=== PATIENT | female | born 1935 | race Caucasian/White ===

== ENCOUNTER 2017-04-14 01:09 | Inpatient (IN) ==
--- NOTE | 2017-04-14 02:02 | Emergency Department Note ---
Nelda Alejandre Emily, am scribing for, and in the presence of, Peter Alston MD 01: 49. Gamaliel Alejandre Charles R, MD, personally performed the services described in this documentation, ascribed by Brittnee Lutz in my presence, and it is both accurate and complete . Arrival - Arrival Chief Complaint: Fall Stated Complaint: Fall ED Nursing Triage Note: Pt brouoght in by [facility] with c/o falling at the residential. Pt is c/o left hip pain. Pt was given 5mg of morphine IV per EMS. Mode of Arrival: Stretcher Limitations: Altered Mental Status (dementia) Source: Patient, RN Notes Reviewed Time Seen by Provider: 04/14/17 01:36 - History of Present Illness HPI Narrative: Pt is a 81 y/o female who was transferred by [facility] from [facility] for further evaluation of fall. Pt c/o left hip pain. Pt was given 5mg of morphine IV per EMS. Pt will not extend left leg. PMHx of dementia, HTN, thyroid disorder. Pt has low grade fever of 99.3 in ED. Onset (ago): hour(s) Consistency: constant Severity: moderate Severity scale (1-10): 6 Quality: aching Allergies/Adverse Reactions: Allergies Allergy/AdvReac Type Severity Reaction Status Date / Time aspirin Allergy Unknown/Unable Verified 04/14/17 01:30 to obtain Shrimp Allergy Unknown/Unable Verified 04/14/17 01:30 to obtain Review of System - Review of System ROS unobtainable: due to dementia Medical,Surgical,& Family Hx - Medical History Cardio: History of: Hypertension Neurology: History of: Dementia Endocrine: History of: Diabetes Mellitus (IDDM), Thyroid Disorder - Family History Family History: noncontributory - Social History Smoking Status: Unknown if ever smoked Frequency of Alcohol Use: None Type of Drug Use: None Marital Status: Single Lives With:: residential Exam Vital Signs: Vital Signs Temperature 99.2 F 04/14/17 01:15 Pulse Rate 76 04/14/17 01:15 Respiratory Rate 16 04/14/17 01:15 Blood Pressure 125/81 04/14/17 01:15 O2 Sat by Pulse Oximetry 94 L 04/14/17 01:15 - General General appearance: alert, in no apparent distress - Head Head exam: Present: atraumatic, normocephalic - Eye Eye exam: Present: nystagmus (secondary to the morphine given [employer]) - ENT ENT exam: Present: mucous membranes moist. Absent: mucous membranes dry - Chest Chest inspection: Present: symmetric chest wall rise. Absent: tenderness - Respiratory Respiratory exam: Present: normal lung sounds bilaterally. Absent: respiratory distress - Cardiovascular Cardiovascular exam: Present: regular rate, normal rhythm, normal heart sounds - Extremities Exam Extremities exam: Present: tenderness (left leg/hip pain which is slightly shortened but will not extend all the way out; neurovascularly intact), other ( left knee has scar from previous knee surgery). Absent: full ROM, pedal edema ( ) - Neurological Exam Neurological exam: Present: alert, CN II-XII intact, other (Parkinson's like tremors; will follow commands; smacks lips). Absent: oriented X3, motor sensory deficit - Skin Skin exam: Present: warm, dry, other (subcutaneous roman on face) Course Course Narrative: Knee immobilizer placed on left lower extremity - Consultations Consultation #1: Dr. Singh orthopedic was consulted he said admit to hospitalist Time: 02:56 Consultation #2: Hospitalist will admit patient Time: 02:56 Disposition Clinical Impression: Fall, Closed fracture of left distal femur, Alzheimer's dementia, Dementia, Diabetes, Debility, unspecified Case discussed with: patient Disposition: Still a Patient Condition: Stable Time of Disposition: 02:58
[2017-04-14] MEDS ORDERED: ACETAMINOPHEN 325 MG TABLET PO PRN (02:56)
[2017-04-14] MEDS ORDERED: DOCUSATE SODIUM 100 MG CAPSULE PO PRN (02:56)
[2017-04-14] MEDS ORDERED: ONDANSETRON 4 MG/2 ML VIAL IV PRN (02:56)
[2017-04-14] MEDS ORDERED: SODIUM CHLORIDE 0.9% 1,000 ML IV SCH (03:00)
[2017-04-14] MEDS ORDERED: GLUCAGON 1 MG VIAL IM PRN (03:03)
--- NOTE | 2017-04-14 03:03 | Hospitalist History & Physical ---
Assessment and Plan (1) Closed fracture of left distal femur Status: Acute Assessment and plan: Admit to 3 E. Consult orthopedics Morphine for pain Lovenox for DVT prophylaxis Review and reconcile medications once available Knee immobilizer per orthopedic surgeon's orders Current Visit: Yes Qualifiers: Encounter type: initial encounter Fracture morphology: unspecified fracture morphology Qualified Code(s): S72.402A - Unspecified fracture of lower end of left femur, initial encounter for closed fracture (2) Alzheimer's dementia Status: Acute Current Visit: Yes Qualifiers: Alzheimer's disease onset: unspecified onset Dementia behavioral disturbance: with behavioral disturbance Qualified Code(s): G30.8 - Other Alzheimer's disease; F02.81 - Dementia in other diseases classified elsewhere with behavioral disturbance (3) Debility, unspecified Status: Chronic Current Visit: Yes (4) Diabetes Status: Chronic Assessment and plan: Accu-Cheks with sliding scale insulin coverage Current Visit: Yes Qualifiers: Diabetes mellitus type: type 2 (5) Fall Status: Acute Current Visit: Yes Qualifiers: Encounter type: initial encounter Qualified Code(s): W19.XXXA - Unspecified fall, initial encounter History of Present Illness Chief complaint: fall at [place] History of present illness: Ms. Adhikari is a 81 year old female who was transferred by [facility] from [facility] for further evaluation of fall. Pt c/o left hip pain. Pt was given 5mg of morphine IV per EMS. She will not extend left leg. x-rays performed in the emergency department revealed a distal femur fracture just above the knee. Patient's being admitted to the hospitalist service with consultation for orthopedic surgery. History gathering is limited due to the patient's history of dementia. Labs are currently pending. Home medications are not available for review and reconciliation. She is a full code. PMHx of dementia, HTN, thyroid disorder. Allergies Allergy/AdvReac Type Severity Reaction Status Date / Time aspirin Allergy Unknown/Unable Verified 04/14/17 01:30 to obtain Shrimp Allergy Unknown/Unable Verified 04/14/17 01:30 to obtain Medical,Surgical,& Family Hx - Medical History Cardio: History of: Hypertension Neurology: History of: Dementia Endocrine: History of: Diabetes Mellitus (IDDM), Thyroid Disorder - Surgical History Orthopedic Surgeries: Surgical HX of;: Total Knee Replacement - Family History Family History: Reports;: Family Hypertension - Social History Smoking Status: Unknown if ever smoked Frequency of Alcohol Use: None Type of Drug Use: None Marital Status: Unknown Lives With:: USP ROS unobtainable: due to dementia Exam - Constitutional Vitals: Period Temp Pulse Resp BP Sys/Melchor Pulse Ox Last 24 Hr 99.2 F-99.2 F 76-76 16-16 125-125/81-81 94 Exam: Constitutional System: Mild distress. No tremulousness. Pleasant and cooperative. Pleasantly confused. Head: Normocephalic, atraumatic. Ears, Nose and Throat System: No pain or tenderness. No epistaxis or discharge Eyes System: Pupils equal, round, and reactive. Extraocular muscles intact. Neck: Supple, without adenopathy, No jugular venous distention. No thyromegaly, neck mass, or prior surgery apparent. Respiratory System: Chest clear to auscultation. Cardiovascular System: Heart with regular rate and rhythm. No murmur. GI System: Abdomen soft, nontender. Normo active bowel sounds present. Musculoskeletal System: limbs with 1-2+ pedal edema. Full distal pulses. Pain on palpation of the distal femur of the left leg Neurological System: No discernable sensory deficit. No aphasia Psychiatric System: Conversation is rational Results - Diagnostic Findings Procedure: X-ray: image reviewed by me, report reviewed by me
--- NOTE | 2017-04-14 03:09 | EKG Report ---
Stationary ECG Study [facility] ER Test Date: 04/14/2017 3:07:14 AM Pat Name: CRISTELA MEIER Department: Room: Gender: F Money Order Clerk: : 1935 Requested by: Peter Cooper Order Number: [id number] Reading MD: TIFFANY RODRIGUEZ Intervals [place] Rate: 81 P: 86 [place]: 220 QRS: 117 QRSD: 92 T: 28 QT: 377 QTc: 414 Interpretive Statements SINUS RHYTHM WITH PAC POSSIBLE RIGHT VENTRICULAR HYPERTROPHY MINIMAL ST DEPRESSION Electronically Signed On 04-14-17 06:21:47 CDT by TIFFANY RODRIGUEZ [email or web address]
[2017-04-14 04:02] LABS: Basophils % 0.3 % (0.0-0.8); Eosinophils # 0.1 10*3/uL (0.0-0.87); Hematocrit 26.8 VOL% (35.7-47.0); Hemoglobin 8.4 GM/DL (12.0-16.0); Immature Granulocytes % 0.6 %; Immature Granulocytes Absolute 0.05 #; Mean Corpuscular HGB Conc 31.3 GM/DL (32-36); Mean Corpuscular Hemoglobin 26 PG (27-34); Mean Corpuscular Volume 82.7 FL (87-102); Mean Platelet Volume 9.1 FL (9.6-12.0); Monocytes # 0.6 10*3/uL (0.11-0.8); Neutrophils # 7.1 10*3/uL (1.4-7.4); Neutrophils % 80.1 % (38.7-73.9); Platelet Count 341 T/CUMM (130-400); Red Blood Count 3.24 MC/CUMM (3.8-5.5); Red Cell Distribution Width 16.1 % (9.3-17.3); White Blood Count 8.9 T/CUMM (4-12)
[2017-04-14 04:14] LABS: PT Patient Result 10.5 SECS
[2017-04-14 04:25] LABS: Albumin 3.9 G/DL (3.4-5.0); Bilirubin,Total 0.4 MG/DL (0.2-1.0); Calcium 9.4 MG/DL (8.5-10.1); Osmolality,Calculated 289.4 MOS/KG (273-304); Total Protein 7.9 G/DL (6.4-8.3)
[2017-04-14 05:16] LABS: Apearance,Urine Slightly Hazy (Clear); Bacteria,Urine Moderate /HPF (Few); Bilirubin,Urine Negative (Negative); Blood, Urine Negative (Negative); Glucose,Urine (UA) Negative (Negative); Hyaline Casts,Urine 4 /LPF (0-3); Ketones,Urine Negative (Negative); Mucus,Urine Occasional /LPF (Occasional); Nitrite,Urine Negative (Negative); Protein,Urine Negative; RBC,Urine 1 /HPF (0-4); Squamous Epithelial Cell,Urine Occasional /HPF (0-10); Urine Color Yellow (Yellow); Urine Specific Gravity 1.012 (1.001-1.035); Urine Urobilinogen < 2.0 EU/DL (0.2-1.0); WBC,Urine 18 /HPF (0-6)
[2017-04-14] MEDS ORDERED: ceFAZolin 2,000 MG in PREMIX 1 EACH IV ONE (06:56)
--- NOTE | 2017-04-14 07:12 | XRay Report ---
XR chest 1V portable Indication: Shortness of breath Comparison: None available Findings: The heart and mediastinum are normal in size and configuration. The pulmonary vascularity is normal in caliber. No lung infiltrates, effusions, pneumothorax or other abnormality is demonstrated. Impression: No acute cardiopulmonary disease. PROCEDURE INTERPRETED AT [facility] DEPARTMENT OF RADIOLOGY Final Report Signed by: Dr. Tomas Lindo
--- NOTE | 2017-04-14 07:28 | XRay Report ---
XR knee 2V LT, XR femur LT Indication: Pain Comparison: None available Findings: There is oblique fracture of the distal femur at the diaphyseal metaphyseal junction. There is slight lateral displacement of the distal femur. Arthroplasty appears within normal limits. Impression: Distal femur fracture as described above. PROCEDURE INTERPRETED AT [facility] DEPARTMENT OF RADIOLOGY Final Report Signed by: Dr. Tomas Lindo
--- NOTE | 2017-04-14 07:30 | XRay Report ---
XR pelvis AP 1 or 2 Views, XR hip 2V LT Indication: Pain, falling injury Comparison: None available Findings: No evidence of fracture seen. The alignment of the joints appears normal. Mild hip degenerative change is present. No soft tissue abnormality is seen. Impression: No evidence of acute injury demonstrated PROCEDURE INTERPRETED AT [facility] DEPARTMENT OF RADIOLOGY Final Report Signed by: Dr. Tomas Lindo
--- NOTE | 2017-04-14 07:31 | Orthopedic Consult Note ---
History of Present Illness History of present illness: Ms. Adhikari is a 81 year old female who fell sustaining a left spiral distal femur periprosthetic fracture. The patient is severely demented. She states that she fell when the mules got out. Patient has no complaints. She is undergone a left total knee [place] [address] José Antonio Feliz with a liner exchange. Home Medications Medication Instructions Recorded Confirmed Type Cholecalciferol [Vitamin D3] 2,000 unit PO DAILY 04/14/17 04/14/17 History Cyanocobalamin (Vitamin B-12) 1,000 mcg PO DAILY 04/14/17 04/14/17 History [Vitamin B-12] DULoxetine [Cymbalta] 90 mg PO DAILY@1700 04/14/17 04/14/17 History Docusate Sodium [Colace] 100 mg PO DAILY 04/14/17 04/14/17 History Donepezil [Aricept] 10 mg PO DAILY 04/14/17 04/14/17 History Furosemide [Furosemide] 20 mg PO BID 04/14/17 04/14/17 History Glimepiride [Glimepiride] 4 mg PO DAILY 04/14/17 04/14/17 History Levothyroxine Sodium 75 mcg PO DAILY 04/14/17 04/14/17 History Losartan/Hctz 50-12.5 [Hyzaar 2 tablet PO DAILY 04/14/17 04/14/17 History 50-12.5] Multivitamin (Centrum) [Centrum 1 tablet PO DAILY 04/14/17 04/14/17 History Tab] Nitrofurantoin Macro/[place] 100 mg PO DAILY 04/14/17 04/14/17 History [Macrobid] Potassium Chloride Cap/Tab [K Dur] 10 meq PO DAILY 04/14/17 04/14/17 History Pravastatin Sodium 40 mg PO BEDTIME 04/14/17 04/14/17 History Sertraline HCl 50 mg PO SUMOTUWETHFR 04/14/17 04/14/17 History Sitagliptin Phosphate [Januvia] 50 mg PO DAILY 04/14/17 04/14/17 History Temazepam [Restoril] 7.5 mg PO MOFR 04/14/17 04/14/17 History Trazodone HCl 100 mg PO BEDTIME 04/14/17 04/14/17 History clonazePAM [Clonazepam] 0.25 mg PO BID 04/14/17 04/14/17 History Allergies Allergy/AdvReac Type Severity Reaction Status Date / Time aspirin Allergy Unknown/Unable Verified 04/14/17 01:30 to obtain Shrimp Allergy Unknown/Unable Verified 04/14/17 01:30 to obtain 12 point system: reviewed and no additional remarkable complaints except as stated Medical,Surgical,& Family Hx - Medical History Cardio: History of: Hypertension Neurology: History of: Dementia Endocrine: History of: Diabetes Mellitus (IDDM), Thyroid Disorder - Surgical History Orthopedic Surgeries: Surgical HX of;: Total Knee Replacement - Family History Family History: Reports;: Family Hypertension - Social History Smoking Status: Unknown if ever smoked Frequency of Alcohol Use: None Type of Drug Use: None Exam - Constitutional Vitals: Period Temp Pulse Resp BP Sys/Melchor Pulse Ox Last 24 Hr 97.0 F-99.2 F 76-91 16-20 98-125/47-81 94-100 Alert, confused. Does not consistently follow commands. Left lower extremity shows a deformity at her mid to distal thigh. Skin is intact. Well-healed anterior knee incision. She can flex her toes but is unable to extend her toes or ankle to stimulation. X-rays femur demonstrate a well fixed cemented posterior stabilized total knee replacement with the distal femoral spiral fracture. Impression left periprosthetic femur fracture Plan: I have advised open reduction fixation of this fracture for palliative care. Risks include but not limited to infection, bleeding, anesthesia, thromboembolic event, etc. I have discussed these risks with her family. All questions were answered. Results - Labs CBC & BMP: 04/14/17 03:01 04/14/17 03:01 Assessment and Plan (1) Periprosthetic fracture around internal prosthetic joint Status: Acute Current Visit: Yes Qualifiers: Internal joint prosthesis site: knee Encounter type: initial encounter Laterality: left Qualified Code(s): M97.12XA - Periprosthetic fracture around internal prosthetic left knee joint, initial encounter
[2017-04-14] MEDS: PANTOPRAZOLE 40 MG TABLET PO SCH (08:14)
[2017-04-14] MEDS: INSULIN LISPRO 100 UNIT/ML SUBCUT SCH ×4 (08:14→20:49)
[2017-04-14] MEDS ORDERED: ENOXAPARIN 40 MG/0.4 ML SYRINGE SUBCUT SCH (09:00)
--- NOTE | 2017-04-14 12:40 | Operative Note ---
Procedure: DIAGNOSIS: Left periprosthetic femur fracture around a prior total knee arthroplasty PROCEDURE: Open reduction fixation left periprosthetic femur fracture SURGEON: Samantha ANESTHESIA: Spinal PROCEDURE and FINDINGS: After adequate anesthesia was induced, her left lower extremity is prepped and draped in usual sterile fashion. A distal incision was made laterally exposing her distal femur. A second incision was made proximally. Skin, subcutaneous tissue and iliotibial band was incised. Vastus lateralis was elevated from the intramuscular septum in both incisions. The lateral aspect of the femur was identified. A Synthes distal femoral locking plate was slid submuscularly. The femur was fixed distally with locking screws and proximally with cortical screws. A lag screw was placed from anterior to posterior and another lag screw was placed from lateral to medial through the plate. Bone quality was poor. Image intensification was used multiple planes. The wound was irrigated and closed deep with 0 Vicryl [id number] suture. Subcutaneous tissue was closed with 2-0 Vicryl deep and 3-0 Vicryl superficially. Oldhams were used to close skin. Image intensification was used in multiple planes to intake clinician adequacy of the reduction. Bacitracin and a sterile dressing was applied. She is placed back in her knee immobilizer. Surgeon / Physician: Alejandro Singh Jr. Results - Labs CBC & BMP: 04/14/17 03:01 04/14/17 03:01 Discharge Plan - Discharge Medications No Action DULoxetine [Cymbalta] 90 mg PO DAILY@1700 clonazePAM [Clonazepam] 0.25 mg PO BID Temazepam [Restoril] 7.5 mg PO MOFR Nitrofurantoin Macro/[place] [Macrobid] 100 mg PO DAILY Multivitamin (Centrum) [Centrum Tab] 1 tablet PO DAILY Sertraline HCl 50 mg PO SUMOTUWETHFR Cyanocobalamin (Vitamin B-12) [Vitamin B-12] 1,000 mcg PO DAILY Potassium Chloride Cap/Tab [K Dur] 10 meq PO DAILY Donepezil [Aricept] 10 mg PO DAILY Furosemide [Furosemide] 20 mg PO BID Sitagliptin Phosphate [Januvia] 50 mg PO DAILY Losartan/Hctz 50-12.5 [Hyzaar 50-12.5] 2 tablet PO DAILY Levothyroxine Sodium 75 mcg PO DAILY Glimepiride [Glimepiride] 4 mg PO DAILY Trazodone HCl 100 mg PO BEDTIME Pravastatin Sodium 40 mg PO BEDTIME Cholecalciferol [Vitamin D3] 2,000 unit PO DAILY Docusate Sodium [Colace] 100 mg PO DAILY - Follow Up or Referral - Forms/Instructions
[2017-04-14] MEDS ORDERED: TRANEXAMIC ACID 1,000 MG/10 ML VIAL IV ONE (13:02)
[2017-04-14] MEDS ORDERED: oxyCODONE IR 5 MG TABLET PO PRN ×2 (14:25)
[2017-04-14] MEDS ORDERED: MAGNESIUM HYDROXIDE SUSP 30 ML UDCUP PO PRN (14:25)
[2017-04-14] MEDS ORDERED: KETAMINE 500 MG/10 ML VIAL ONE (14:45)
[2017-04-14] MEDS ORDERED: MIDAZOLAM 2 MG/2 ML VIAL ONE (14:45)
[2017-04-14] MEDS ORDERED: LACTATED RINGERS 1,000 ML IV ONE (14:45)
[2017-04-14] MEDS ORDERED: SODIUM CHLORIDE 0.9% 250 ML IV PRN (15:09)
[2017-04-14] MEDS ORDERED: FUROSEMIDE 40 MG/4 ML VIAL IV PRN (15:09)
[2017-04-14] MEDS: SERTRALINE 50 MG TABLET PO SCH (15:21)
[2017-04-14] MEDS: LACTATED RINGERS 1,000 ML IV SCH (15:25)
[2017-04-14] MEDS: KETOROLAC 15 MG/1 ML VIAL IV SCH ×2 (15:25→20:50)
--- NOTE | 2017-04-14 15:29 | Anesthesia Post-Op ---
Anesthesia Post OP - Post Ansesthetic Evaluation Patient seen in post op: Yes Resp: within normal limits CV: within normal limits Mental: within normal limits Temp: within normal limits Ruxr-[id number]-Nslumuwzd: within normal limits Nausea and Vomiting: within normal limits Pain: within normal limits
--- NOTE | 2017-04-14 15:51 | XRay Report ---
Exam: XR femur LT Date: 04/14/2017 12:00 AM Comparison: 04/14/2017 Indication: ORIF left femur Technique:[Fluoroscopy time 31 seconds documented. AP and lateral films were obtained of the left femur.] Findings: Status post left total knee replacement. Insertion of medial compression plate with multiple screws in the mid to distal left femur. The acute displaced fracture of the distal left femur appears to be in satisfactory position alignment for healing. Impression: Satisfactory internal fixation of the displaced fracture of the distal left femur. Status post left total knee replacement. PROCEDURE INTERPRETED AT [facility] DEPARTMENT OF RADIOLOGY Final Report Signed by: Dr. Brunilda Mcintyre
[2017-04-14 16:27] LABS: Basophils % 0.2 % (0.0-0.8); Eosinophils # 0.1 10*3/uL (0.0-0.87); Eosinophils % 0.5 % (0.00-10.9); Hematocrit 20.9 VOL% (35.7-47.0); Hemoglobin 6.5 GM/DL (12.0-16.0); Immature Granulocytes % 0.4 %; Immature Granulocytes Absolute 0.04 #; Lymphocytes # 0.7 10*3/uL (1.4-4.0); Lymphocytes % 7.1 % (21.3-54.2); Mean Corpuscular HGB Conc 31.1 GM/DL (32-36); Mean Corpuscular Hemoglobin 26 PG (27-34); Mean Corpuscular Volume 83.6 FL (87-102); Mean Platelet Volume 9.2 FL (9.6-12.0); Monocytes # 0.8 10*3/uL (0.11-0.8); Monocytes % 7.9 % (1.7-12.7); Neutrophils # 8.1 10*3/uL (1.4-7.4); Neutrophils % 83.9 % (38.7-73.9); Platelet Count 274 T/CUMM (130-400); Red Cell Distribution Width 15.9 % (9.3-17.3); White Blood Count 9.7 T/CUMM (4-12)
[2017-04-14] MEDS: DULoxetine 30 MG CAPSULE PO SCH (16:36)
[2017-04-14 16:49] LABS: Calcium 8.5 MG/DL (8.5-10.1); Potassium 3.7 MMOL/L (3.5-5.1)
[2017-04-14 18:06] LABS: Lymphocytes 11 % (20-55); Platelet Estimate Adequate; Polychromasia Slight; Segmented Neutrophils 89 % (50-85); Total Cells Counted 100
[2017-04-14] MEDS: ACETAMINOPHEN 500 MG TABLET PO SCH (18:11)
[2017-04-14] MEDS: FUROSEMIDE 20 MG TABLET PO SCH (20:50)
[2017-04-14] MEDS: PRAVASTATIN 40 MG TABLET PO SCH (20:50)
[2017-04-14] MEDS: traZODone 50 MG TABLET PO SCH (20:50)
[2017-04-15] MEDS: ACETAMINOPHEN 500 MG TABLET PO SCH ×3 (01:18→11:35)
[2017-04-15] MEDS: ceFAZolin 2,000 MG in PREMIX 1 EACH IV SCH ×2 (02:22→10:07)
[2017-04-15] MEDS: KETOROLAC 15 MG/1 ML VIAL IV SCH ×2 (02:34→08:05)
[2017-04-15 03:28] LABS: Basophils % 0.2 % (0.0-0.8); Eosinophils % 0.5 % (0.00-10.9); Hematocrit 23.6 VOL% (35.7-47.0); Hemoglobin 7.6 GM/DL (12.0-16.0); Immature Granulocytes % 0.5 %; Immature Granulocytes Absolute 0.03 #; Lymphocytes # 0.7 10*3/uL (1.4-4.0); Lymphocytes % 11.7 % (21.3-54.2); Mean Corpuscular HGB Conc 32.2 GM/DL (32-36); Mean Corpuscular Hemoglobin 27 PG (27-34); Mean Corpuscular Volume 83.7 FL (87-102); Mean Platelet Volume 9.6 FL (9.6-12.0); Monocytes # 0.8 10*3/uL (0.11-0.8); Monocytes % 12.4 % (1.7-12.7); Neutrophils # 4.6 10*3/uL (1.4-7.4); Neutrophils % 74.7 % (38.7-73.9); Platelet Count 229 T/CUMM (130-400); Red Blood Count 2.82 MC/CUMM (3.8-5.5); Red Cell Distribution Width 15.3 % (9.3-17.3); White Blood Count 6.1 T/CUMM (4-12)
[2017-04-15 03:43] LABS: Calcium 7.9 MG/DL (8.5-10.1); Magnesium 2.3 MG/DL (1.8-2.4); Potassium 4.1 MMOL/L (3.5-5.1)
[2017-04-15] MEDS: LACTATED RINGERS 1,000 ML IV SCH ×3 (07:37→21:21)
[2017-04-15] MEDS: INSULIN LISPRO 100 UNIT/ML SUBCUT SCH ×4 (07:38→21:05)
[2017-04-15] MEDS: FUROSEMIDE 20 MG TABLET PO SCH ×2 (08:01→21:08)
[2017-04-15] MEDS: clonazePAM 0.5 MG TABLET PO SCH ×2 (08:01→21:07)
[2017-04-15] MEDS: LOSARTAN/HCTZ 50-12.5 MG TABLET PO SCH (08:01)
[2017-04-15] MEDS: FONDAPARINUX 2.5 MG/0.5 ML SYRINGE SUBCUT SCH (08:05)
[2017-04-15] MEDS: GLIMEPIRIDE 4 MG TABLET PO SCH (08:06)
[2017-04-15] MEDS: LEVOTHYROXINE 75 MCG TABLET PO SCH (08:06)
[2017-04-15] MEDS: DONEPEZIL 10 MG TABLET PO SCH (08:06)
[2017-04-15] MEDS: POTASSIUM CHLORIDE 10 MEQ TABLET PO SCH (08:07)
[2017-04-15] MEDS: CHOLECALCIFEROL 1,000 UNIT TABLET PO SCH (08:07)
[2017-04-15] MEDS: sitaGLIPtin 25 MG TABLET PO SCH (08:07)
[2017-04-15] MEDS: MULTIVITAMIN (CENTRUM) TABLET PO SCH (08:07)
[2017-04-15] MEDS: CYANOCOBALAMIN 500 MCG TABLET PO SCH (08:07)
--- NOTE | 2017-04-15 08:07 | Orthopedic Progress Note ---
Orthopedics - Subjective Interval history: She is one day postop orif of periprosthetic femur fx left, adjacent to total knee. Alert, oriented. Dressing clean and dry. neurovascular seems ok. hct at 23.6, and was 20.9 yesterday but bears watching. Plan: no change in ortho orders Exam - Constitutional Vitals: Period Temp Pulse Resp BP Sys/Melchor Pulse Ox Last 24 Hr 97.2 F-100.0 F 65-101 16-22 72-131/29-77 88-100 Results - Labs CBC & BMP: 04/15/17 02:51 04/15/17 02:51
[2017-04-15] MEDS: DOCUSATE SODIUM 100 MG CAPSULE PO SCH (08:27)
[2017-04-15] MEDS: NITROFURANTOIN MACRO/MONO 100 MG CAPSULE PO SCH (08:27)
[2017-04-15] MEDS: PANTOPRAZOLE 40 MG TABLET PO SCH (08:27)
--- NOTE | 2017-04-15 10:49 | Hospitalist Progress Note ---
Assessment and Plan (1) UTI (urinary tract infection) Status: Acute Assessment and plan: The patient has gram-negative naga urinary tract infection. It was present on admission. We are treating this with oral Levaquin. We will likely have identity and sensitivities by tomorrow. Current Visit: Yes Qualifiers: Urinary tract infection type: acute cystitis Hematuria presence: without hematuria Qualified Code(s): N30.00 - Acute cystitis without hematuria Hospitalist: Subjective Interval history: The patient is postoperative day #1 from distal femur fracture. The patient is on standard postoperative recovery. Urinalysis showed some pyuria and urine culture reveals gram-negative rods. Levaquin is now started. Exam - Constitutional Vitals: Period Temp Pulse Resp BP Sys/Melchor Pulse Ox Last 24 Hr 97.2 F-100.0 F 65-101 16-22 72-131/29-77 88-100 General appearance: no acute distress - ENT ENT exam: Present: normal exam - Respiratory Respiratory exam: Present: clear to auscultation bilaterally - Cardiovascular Cardiovascular exam: Present: regular rate and rhythm - GI/Abdominal GI/Abdominal exam: Present: normal bowel sounds Results - Labs CBC & BMP: 04/15/17 02:51 04/15/17 02:51 Lab Results: I have reviewed the past 24 hour labs
[2017-04-15] MEDS ORDERED: LEVOFLOXACIN 500 MG TABLET PO ONE (11:00)
[2017-04-15 15:47] LABS: Hematocrit 22.9 VOL% (35.7-47.0); Hemoglobin 7.3 GM/DL (12.0-16.0)
[2017-04-15] MEDS ORDERED: SODIUM CHLORIDE 0.9% 250 ML IV PRN (16:02)
[2017-04-15] MEDS: DULoxetine 30 MG CAPSULE PO SCH (16:21)
[2017-04-15 20:21] LABS: Basophils % 0.3 % (0.0-0.8); Eosinophils # 0.1 10*3/uL (0.0-0.87); Eosinophils % 1.7 % (0.00-10.9); Hematocrit 27.2 VOL% (35.7-47.0); Hemoglobin 8.9 GM/DL (12.0-16.0); Immature Granulocytes % 0.4 %; Immature Granulocytes Absolute 0.03 #; Lymphocytes # 0.8 10*3/uL (1.4-4.0); Lymphocytes % 11.4 % (21.3-54.2); Mean Corpuscular HGB Conc 32.7 GM/DL (32-36); Mean Corpuscular Hemoglobin 27 PG (27-34); Mean Corpuscular Volume 83.7 FL (87-102); Mean Platelet Volume 9.1 FL (9.6-12.0); Monocytes # 0.9 10*3/uL (0.11-0.8); Monocytes % 12.6 % (1.7-12.7); Neutrophils # 5.3 10*3/uL (1.4-7.4); Neutrophils % 73.6 % (38.7-73.9); Platelet Count 210 T/CUMM (130-400); Red Blood Count 3.25 MC/CUMM (3.8-5.5); Red Cell Distribution Width 15.8 % (9.3-17.3); White Blood Count 7.2 T/CUMM (4-12)
[2017-04-15] MEDS: PRAVASTATIN 40 MG TABLET PO SCH (21:08)
[2017-04-15] MEDS: traZODone 50 MG TABLET PO SCH (21:08)
[2017-04-16 03:18] LABS: Basophils % 0.1 % (0.0-0.8); Eosinophils # 0.1 10*3/uL (0.0-0.87); Eosinophils % 1.3 % (0.00-10.9); Hematocrit 26.7 VOL% (35.7-47.0); Hemoglobin 8.7 GM/DL (12.0-16.0); Immature Granulocytes % 0.5 %; Immature Granulocytes Absolute 0.04 #; Lymphocytes # 0.9 10*3/uL (1.4-4.0); Lymphocytes % 11.3 % (21.3-54.2); Mean Corpuscular HGB Conc 32.6 GM/DL (32-36); Mean Corpuscular Hemoglobin 27 PG (27-34); Mean Corpuscular Volume 83.2 FL (87-102); Mean Platelet Volume 9.4 FL (9.6-12.0); Monocytes % 12.7 % (1.7-12.7); Neutrophils # 5.7 10*3/uL (1.4-7.4); Neutrophils % 74.1 % (38.7-73.9); Platelet Count 224 T/CUMM (130-400); Red Blood Count 3.21 MC/CUMM (3.8-5.5); Red Cell Distribution Width 16.1 % (9.3-17.3); White Blood Count 7.7 T/CUMM (4-12)
[2017-04-16 04:50] LABS: Band Neutrophils 1 % (0-10); Lymphocytes 12 % (20-55); Segmented Neutrophils 78 % (50-85)
[2017-04-16 04:52] LABS: Platelet Estimate Normal
[2017-04-16 04:53] LABS: Total Cells Counted 100
[2017-04-16] MEDS: LACTATED RINGERS 1,000 ML IV SCH ×3 (06:05→16:30)
[2017-04-16] MEDS: INSULIN LISPRO 100 UNIT/ML SUBCUT SCH ×4 (07:52→21:12)
[2017-04-16] MEDS: CHOLECALCIFEROL 1,000 UNIT TABLET PO SCH (08:17)
[2017-04-16] MEDS: PANTOPRAZOLE 40 MG TABLET PO SCH (08:17)
[2017-04-16] MEDS: MULTIVITAMIN (CENTRUM) TABLET PO SCH (08:17)
[2017-04-16] MEDS: CYANOCOBALAMIN 500 MCG TABLET PO SCH (08:17)
[2017-04-16] MEDS: POTASSIUM CHLORIDE 10 MEQ TABLET PO SCH (08:19)
[2017-04-16] MEDS: FUROSEMIDE 20 MG TABLET PO SCH ×2 (08:20→22:20)
[2017-04-16] MEDS: NITROFURANTOIN MACRO/MONO 100 MG CAPSULE PO SCH (08:20)
[2017-04-16] MEDS: clonazePAM 0.5 MG TABLET PO SCH ×2 (08:20→21:47)
[2017-04-16] MEDS: DONEPEZIL 10 MG TABLET PO SCH (08:20)
[2017-04-16] MEDS: LOSARTAN/HCTZ 50-12.5 MG TABLET PO SCH (08:20)
[2017-04-16] MEDS: LEVOTHYROXINE 75 MCG TABLET PO SCH (08:20)
[2017-04-16] MEDS: DOCUSATE SODIUM 100 MG CAPSULE PO SCH (08:20)
[2017-04-16] MEDS: GLIMEPIRIDE 4 MG TABLET PO SCH (08:36)
[2017-04-16] MEDS: sitaGLIPtin 25 MG TABLET PO SCH (08:36)
[2017-04-16] MEDS: FONDAPARINUX 2.5 MG/0.5 ML SYRINGE SUBCUT SCH (08:36)
--- NOTE | 2017-04-16 10:22 | Orthopedic Progress Note ---
Orthopedics - Subjective Interval history: This lady is now 2 days postoperative surgical repair for a distal femur periprosthetic fracture adjacent to the toe. She was given 1 transfusion yesterday but her blood count now is at 26.7. Will recheck later today. She is alert and oriented and her pain is under control Exam - Constitutional Vitals: Period Temp Pulse Resp BP Sys/Melchor Pulse Ox Last 24 Hr 97.3 F-98.8 F 62-94 16-18 95-144/42-74 93-100 Results - Labs CBC & BMP: 04/16/17 02:29 04/15/17 02:51
[2017-04-16] MEDS: DEXTROSE 50% 25 GM/50 ML SYRINGE IV PRN ×3 (10:58→22:24)
--- NOTE | 2017-04-16 12:02 | Hospitalist Progress Note ---
Assessment and Plan (1) UTI (urinary tract infection) Status: Acute Assessment and plan: The patient has E. coli urinary tract infection. It was present on admission. Sensitivities show resistance in the ESBL fashion. Levaquin is discontinued now and meropenem has been started. If oral antibiotic were desired she could be discharged on . Current Visit: Yes Qualifiers: Urinary tract infection type: acute cystitis Hematuria presence: without hematuria Qualified Code(s): N30.00 - Acute cystitis without hematuria Hospitalist: Subjective Interval history: The patient was admitted to the hospital after a fall. She sustained a left distal femur fracture which was associated with previous total knee arthroplasty. The patient is now on her second postoperative day. The patient had hypoglycemia last night. Her aunt oral antidiabetic medications are now discontinued. The patient had transfusion yesterday will recheck blood counts again tomorrow. Exam - Constitutional Vitals: Period Temp Pulse Resp BP Sys/Melchor Pulse Ox Last 24 Hr 97.3 F-98.8 F 63-94 16-18 95-144/42-74 93-100 General appearance: no acute distress - Respiratory Respiratory exam: Present: clear to auscultation bilaterally - Cardiovascular Cardiovascular exam: Present: regular rate and rhythm - GI/Abdominal GI/Abdominal exam: Present: normal bowel sounds Results - Labs CBC & BMP: 04/16/17 02:29 04/15/17 02:51 Lab Results: I have reviewed the past 24 hour labs
[2017-04-16] MEDS: MEROPENEM 500 MG in SODIUM CHLORIDE 0.9% 100 ML IV SCH (13:06)
[2017-04-16] MEDS: SERTRALINE 50 MG TABLET PO SCH (14:36)
[2017-04-16 16:19] LABS: Hematocrit 25.2 VOL% (35.7-47.0); Hemoglobin 8.1 GM/DL (12.0-16.0)
[2017-04-16] MEDS: DEXTROSE 10% 1,000 ML IV SCH (16:42)
[2017-04-16] MEDS: DULoxetine 30 MG CAPSULE PO SCH (16:42)
[2017-04-16] MEDS: traZODone 50 MG TABLET PO SCH (21:47)
[2017-04-16] MEDS: PRAVASTATIN 40 MG TABLET PO SCH (21:47)
[2017-04-17] MEDS: MEROPENEM 500 MG in SODIUM CHLORIDE 0.9% 100 ML IV SCH ×2 (00:32→11:53)
[2017-04-17] MEDS: DEXTROSE 10% 1,000 ML IV SCH ×2 (03:27→13:21)
[2017-04-17 04:50] LABS: Basophils % 0.1 % (0.0-0.8); Eosinophils # 0.1 10*3/uL (0.0-0.87); Eosinophils % 0.7 % (0.00-10.9); Hematocrit 25.8 VOL% (35.7-47.0); Hemoglobin 8.4 GM/DL (12.0-16.0); Immature Granulocytes % 0.8 %; Immature Granulocytes Absolute 0.06 #; Lymphocytes # 0.5 10*3/uL (1.4-4.0); Lymphocytes % 6.8 % (21.3-54.2); Mean Corpuscular HGB Conc 32.6 GM/DL (32-36); Mean Corpuscular Hemoglobin 27 PG (27-34); Mean Corpuscular Volume 83.8 FL (87-102); Mean Platelet Volume 9.4 FL (9.6-12.0); Monocytes # 0.9 10*3/uL (0.11-0.8); Monocytes % 11.5 % (1.7-12.7); Neutrophils % 80.1 % (38.7-73.9); Platelet Count 216 T/CUMM (130-400); Red Blood Count 3.08 MC/CUMM (3.8-5.5); Red Cell Distribution Width 16.4 % (9.3-17.3); White Blood Count 7.5 T/CUMM (4-12)
[2017-04-17 05:24] LABS: Calcium 8.2 MG/DL (8.5-10.1); Magnesium 2.3 MG/DL (1.8-2.4); Osmolality,Calculated 286.1 MOS/KG (273-304); Potassium 3.6 MMOL/L (3.5-5.1)
[2017-04-17] MEDS: DEXTROSE 50% 25 GM/50 ML SYRINGE IV PRN (05:34)
[2017-04-17] MEDS: INSULIN LISPRO 100 UNIT/ML SUBCUT SCH ×4 (07:41→20:00)
--- NOTE | 2017-04-17 08:48 | Orthopedic Progress Note ---
Assessment and Plan (1) Periprosthetic fracture around internal prosthetic joint Status: Acute Current Visit: Yes Qualifiers: Internal joint prosthesis site: knee Encounter type: initial encounter Laterality: left Qualified Code(s): M97.12XA - Periprosthetic fracture around internal prosthetic left knee joint, initial encounter Orthopedics - Subjective Interval history: Ms. Adhikari is comfortable. She remains confused at baseline. Her dressing is clean, dry and intact. Left lower extremity is neurovascularly unchanged from admission. She can flex her toes and weakly her ankles. She is unable to extend her toes or ankle. She follows commands poorly. Hemoglobin 8.4 Plan: May be discharged back to the [facility] at any point from my standpoint. Remove knee immobilizer daily for wound check, skin check and hygiene. Daily dry dressing changes. Discontinue jordon and Steri-Strip wound on April 26, 2017. Follow-up appointment 4 weeks. Strict nonweightbearing left lower extremity. Exam - Constitutional Vitals: Period Temp Pulse Resp BP Sys/Melchor Pulse Ox Last 24 Hr 97.7 F-98.5 F 64-90 16-18 106-152/49-73 95-97 Results - Labs CBC & BMP: 04/17/17 04:24 04/17/17 04:24
[2017-04-17] MEDS ORDERED: LEVOFLOXACIN 250 MG TABLET PO SCH (09:00)
[2017-04-17] MEDS: clonazePAM 0.5 MG TABLET PO SCH (09:25)
[2017-04-17] MEDS: FONDAPARINUX 2.5 MG/0.5 ML SYRINGE SUBCUT SCH (09:26)
[2017-04-17] MEDS: LEVOTHYROXINE 75 MCG TABLET PO SCH (09:26)
[2017-04-17] MEDS: CHOLECALCIFEROL 1,000 UNIT TABLET PO SCH (09:26)
[2017-04-17] MEDS: CYANOCOBALAMIN 500 MCG TABLET PO SCH (09:26)
[2017-04-17] MEDS: NITROFURANTOIN MACRO/MONO 100 MG CAPSULE PO SCH (09:26)
[2017-04-17] MEDS: DONEPEZIL 10 MG TABLET PO SCH (09:27)
[2017-04-17] MEDS: LOSARTAN/HCTZ 50-12.5 MG TABLET PO SCH (09:27)
[2017-04-17] MEDS: DOCUSATE SODIUM 100 MG CAPSULE PO SCH (09:27)
[2017-04-17] MEDS: FUROSEMIDE 20 MG TABLET PO SCH (09:27)
[2017-04-17] MEDS: PANTOPRAZOLE 40 MG TABLET PO SCH (09:27)
[2017-04-17] MEDS: POTASSIUM CHLORIDE 10 MEQ TABLET PO SCH (09:27)
[2017-04-17] MEDS: MULTIVITAMIN (CENTRUM) TABLET PO SCH (09:27)
--- NOTE | 2017-04-17 11:53 | Physician Query Form ---
CLICK EDIT DOCUMENT TO SELECT QUERY ANSWER --> OK --> SIGN Wandy Elliott RN, CCDS Certified Clinical Table Attendant W) [phone] (f) [phone] [email or web address] PROVIDERS: Make your selection(s) from the choices in EACH section by typing an "x" and enter comments in the comment section. Please use your independent medical judgment in providing your response. This request does not imply that any particular answer is desired or expected. CLINICAL INDICATORS: (Providers should not edit this section) The medical record indicates that the patient was admitted with a "closed fracture of left distal femur", HH dropped to 6.5/20.9 and the patient was been given 3 units of blood. Based on the above, could you clarify which of the following conditions you are evaluating, treating, and/or monitoring? ( x) Blood loss anemia ( ) acute ( ) chronic ( x) acute on chronic ( ) Acute blood loss anemia on baseline chronic anemia ( ) Acute blood loss anemia as a complication of a procedure ( ) Iron deficiency anemia not associated with blood loss ( ) Dilutional anemia due to IV fluids ( ) Anemia due to chemotherapy ( ) Anemia due to neoplastic disease ( ) Anemia due to chronic kidney disease ( ) Pernicious anemia ( ) Aplastic anemia ( ) Hemolytic anemia ( ) immune ( ) non-immune - please specify cause: ( ) Anemia due to other condition, please specify: ( ) Clinically unable to determine COMMENTS: PLEASE ALSO DOCUMENT RESPONSE IN PROGRESS NOTES AND/OR DISCHARGE SUMMARY Use of terms such as suspected, likely, or probable (associated with a specific diagnosis that is being evaluated, monitored, or treated as if it exists) are acceptable and can be restated in the discharge summary if not ruled out. MTDD
[2017-04-17] MEDS ORDERED: ZINC OXIDE 16% PASTE 57 GM TUBE TOP PRN (15:01)
[2017-04-17] MEDS: SERTRALINE 50 MG TABLET PO SCH (15:28)
--- NOTE | 2017-04-17 16:57 | Hospitalist Progress Note ---
Assessment and Plan (1) Periprosthetic fracture around internal prosthetic joint Status: Acute Assessment and plan: Status post open reduction fixation left periprosthetic femur fracture by Dr. Singh, strict nonweightbearing of the left lower extremity follow-up appointment in 4 weeks Current Visit: Yes Qualifiers: Internal joint prosthesis site: knee Encounter type: initial encounter Laterality: left Qualified Code(s): M97.12XA - Periprosthetic fracture around internal prosthetic left knee joint, initial encounter (2) Anemia Status: Acute Assessment and plan: Continue to monitor, hemoglobin 8.4. Patient is received 3 units of packed red blood cells. Current Visit: Yes (3) Acute renal failure Status: Acute Assessment and plan: Patient has acute versus chronic renal failure, renal us and echo Current Visit: Yes (4) Hypothyroidism Status: Acute Assessment and plan: cont levothyroxine Current Visit: Yes (5) Alzheimer's dementia Status: Acute Assessment and plan: cont aricept, cut down on sedating meds Current Visit: Yes Qualifiers: Alzheimer's disease onset: unspecified onset Dementia behavioral disturbance: with behavioral disturbance Qualified Code(s): G30.8 - Other Alzheimer's disease; F02.81 - Dementia in other diseases classified elsewhere with behavioral disturbance (6) Diabetes Status: Chronic Assessment and plan: hypoglycemia, amaryl on hold, due to renal failure may need D5 for a few days Current Visit: Yes Qualifiers: Diabetes mellitus type: type 2 (7) UTI (urinary tract infection) Status: Acute Assessment and plan: Growing ESBL E. coli sensitive to Invanz. Change meropenem to Invanz Current Visit: Yes Qualifiers: Urinary tract infection type: acute cystitis Hematuria presence: without hematuria Qualified Code(s): N30.00 - Acute cystitis without hematuria (8) Metabolic encephalopathy Status: Acute Assessment and plan: Due to hypoglycemia and oversedation with medications. Have cut back on her trazodone, stopped her Zoloft, stopped a higher dose of pain medicines and stopped her benzos Current Visit: Yes Hospitalist: Subjective Interval history: Patient is on D10 at 50 ML's per hour. She has diminished breath sounds today and she has bilateral lower extremity edema. Patient seems overly sedated and I have reviewed her her medicines and have stopped her Zoloft cut her trazodone in half and stopped her benzos. Patient's not getting eat when she is sleeping all the time. Niece is at bedside patient does not have any children of her own. Exam - Constitutional Vitals: Period Temp Pulse Resp BP Sys/Melchor Pulse Ox Last 24 Hr 97.7 F-98.6 F 70-90 16-18 106-125/49-74 95-97 Exam: Heart Rate-[RRR] Lungs-[diminished] GI-[+bs soft, NT] Ext-[2+ edema] Neuro [too lethargic to cooperate with physical exam psych [diminished mood and flat affect] General [no acute distress] Results - Labs CBC & BMP: 04/17/17 04:24 04/17/17 04:24 Lab Results: I have reviewed the past 24 hour labs Specialty Discharge - Follow Up or Referrals Follow up with: Alejandro Singh Jr., MD [Physician] - 05/15/17 12:45 pm
[2017-04-17] MEDS ORDERED: DEXTROSE 5% 1,000 ML IV SCH (17:00)
[2017-04-17] MEDS: DULoxetine 30 MG CAPSULE PO SCH (17:00)
[2017-04-17] MEDS: FUROSEMIDE 40 MG/4 ML VIAL IV SCH (17:08)
--- NOTE | 2017-04-17 17:51 | XRay Report ---
Portable chest Date: 04/17/2017 Clinical history: Shortness of breath Comparison: 04/14/2017 Technique: Portable AP sitting chest Findings: Stable cardiomegaly with chronic scarring in the lungs. Localized eventration of the right hemidiaphragm. Old healed rib fractures with osteopenia and degenerative changes. Impression: No significant change in the appearance of the chest. Persistent cardiomegaly with chronic scarring in the lungs. Osteopenia. PROCEDURE INTERPRETED AT [facility] DEPARTMENT OF RADIOLOGY Final Report Signed by: Dr. Brunilda Mcintrye
--- NOTE | 2017-04-17 17:58 | Ultrasound Report ---
Exam: US renal Bilateral Date: 04/17/2017 5:04 PM Comparison: None Indication: Chronic versus acute renal failure Technique:[Multiple transabdominal real-time scans were obtained and kidneys. Ultrasound images were captured and stored.] Findings: Right kidney measures 87 x 47 x 37 mm. Left kidney measures 87 x 52 x 47 mm. No masses or hydronephrosis. Inhomogeneous echogenicity. Impression: Generalized cortical loss of kidneys with inhomogeneous echogenicity which can be seen with medical renal disease. No masses or hydronephrosis. PROCEDURE INTERPRETED AT [facility] DEPARTMENT OF RADIOLOGY Final Report Signed by: Dr. Brunilda Mcintyre
[2017-04-17] MEDS: ERTAPENEM 1,000 MG in SODIUM CHLORIDE 0.9% 100 ML IV SCH (18:03)
[2017-04-17] MEDS: traZODone 50 MG TABLET PO SCH (20:16)
[2017-04-17] MEDS: PRAVASTATIN 40 MG TABLET PO SCH (20:16)
[2017-04-17] MEDS: MORPHINE 2 MG/1 ML SYRINGE IV PRN (22:25)
[2017-04-18 05:46] LABS: Calcium 8.5 MG/DL (8.5-10.1); Osmolality,Calculated 289.3 MOS/KG (273-304); Potassium 3.9 MMOL/L (3.5-5.1)
[2017-04-18] MEDS: INSULIN LISPRO 100 UNIT/ML SUBCUT SCH ×4 (07:13→20:00)
[2017-04-18] MEDS: DONEPEZIL 10 MG TABLET PO SCH (08:57)
[2017-04-18] MEDS: FONDAPARINUX 2.5 MG/0.5 ML SYRINGE SUBCUT SCH (08:57)
[2017-04-18] MEDS: FUROSEMIDE 40 MG/4 ML VIAL IV SCH (08:57)
[2017-04-18] MEDS: PANTOPRAZOLE 40 MG TABLET PO SCH (08:58)
[2017-04-18] MEDS: MULTIVITAMIN (CENTRUM) TABLET PO SCH (08:58)
[2017-04-18] MEDS: CYANOCOBALAMIN 500 MCG TABLET PO SCH (08:58)
[2017-04-18] MEDS: LEVOTHYROXINE 75 MCG TABLET PO SCH (08:58)
[2017-04-18] MEDS: CHOLECALCIFEROL 1,000 UNIT TABLET PO SCH (08:58)
[2017-04-18] MEDS: POTASSIUM CHLORIDE 10 MEQ TABLET PO SCH (08:58)
[2017-04-18] MEDS: DOCUSATE SODIUM 100 MG CAPSULE PO SCH (08:58)
--- NOTE | 2017-04-18 10:39 | Orthopedic Progress Note ---
Assessment and Plan (1) Periprosthetic fracture around internal prosthetic joint Status: Acute Current Visit: Yes Qualifiers: Internal joint prosthesis site: knee Encounter type: initial encounter Laterality: left Qualified Code(s): M97.12XA - Periprosthetic fracture around internal prosthetic left knee joint, initial encounter Orthopedics - Subjective Interval history: Alert, confused Dressing clean, dry and intact. Neurovascularly unchanged. Follows orders poorly. Creatinine is back to baseline at 1.6 after rising to 1.8. Plan: May discharge to longterm at any time from my standpoint. Exam - Constitutional Vitals: Period Temp Pulse Resp BP Sys/Melchor Pulse Ox Last 24 Hr 98.0 F-98.8 F 70-80 18-18 115-129/46-74 93-97 Results - Labs CBC & BMP: 04/17/17 04:24 04/18/17 04:22 Specialty Discharge - Follow Up or Referrals Follow up with: Alejandro Singh Jr., MD [Physician] - 05/15/17 12:45 pm
--- NOTE | 2017-04-18 13:54 | Hospitalist Progress Note ---
Assessment and Plan (1) Periprosthetic fracture around internal prosthetic joint Status: Acute Assessment and plan: Status post open reduction fixation left periprosthetic femur fracture by Dr. Singh, strict nonweightbearing of the left lower extremity follow-up appointment in 4 weeks Current Visit: Yes Qualifiers: Internal joint prosthesis site: knee Encounter type: initial encounter Laterality: left Qualified Code(s): M97.12XA - Periprosthetic fracture around internal prosthetic left knee joint, initial encounter (2) Anemia Status: Acute Assessment and plan: Hemoglobin stable Current Visit: Yes (3) Acute renal failure Status: Acute Assessment and plan: Patient has chronic renal failure, discontinue lasix as BNP normal echo pending Current Visit: Yes (4) Hypothyroidism Status: Acute Assessment and plan: cont levothyroxine Current Visit: Yes (5) Alzheimer's dementia Status: Acute Assessment and plan: cont aricept, continue lower dose of medication Current Visit: Yes Qualifiers: Alzheimer's disease onset: unspecified onset Dementia behavioral disturbance: with behavioral disturbance Qualified Code(s): G30.8 - Other Alzheimer's disease; F02.81 - Dementia in other diseases classified elsewhere with behavioral disturbance (6) Diabetes Status: Chronic Assessment and plan: hypoglycemia resolved stop D5 Current Visit: Yes Qualifiers: Diabetes mellitus type: type 2 (7) UTI (urinary tract infection) Status: Acute Assessment and plan: Growing ESBL E. coli sensitive to Invanz. Cont Invanz for two more days Current Visit: Yes Qualifiers: Urinary tract infection type: acute cystitis Hematuria presence: without hematuria Qualified Code(s): N30.00 - Acute cystitis without hematuria (8) Metabolic encephalopathy Status: Acute Assessment and plan: resolved Current Visit: Yes Hospitalist: Subjective Interval history: Patient is more alert today since decreasing her medications. Her BNP was normal. His blood sugars are better and I will stop her D5. She should be able to go to the intermediate tomorrow. Exam - Constitutional Vitals: Period Temp Pulse Resp BP Sys/Melchor Pulse Ox Last 24 Hr 96.8 F-98.8 F 70-80 18-18 115-144/46-66 93-97 Exam: Heart Rate-[RRR] Lungs-[clear] GI-[+bs soft, NT] Ext-[1+ edema] Neuro [more alert today psych [depressed mood and flat affect] General [no acute distress] Results - Labs CBC & BMP: 04/17/17 04:24 04/18/17 04:22 Lab Results: I have reviewed the past 24 hour labs - Diagnostic Findings Procedure: Chest x-ray: report reviewed by me (Persistent cardiomegaly), Ultrasound: report reviewed by me (Cortical loss of kidneys) Specialty Discharge - Follow Up or Referrals Follow up with: Alejandro Singh Jr., MD [Physician] - 05/15/17 12:45 pm
[2017-04-18] MEDS: MORPHINE 2 MG/1 ML SYRINGE IV PRN (14:30)
[2017-04-18] MEDS: DULoxetine 30 MG CAPSULE PO SCH (16:38)
[2017-04-18] MEDS: ERTAPENEM 1,000 MG in SODIUM CHLORIDE 0.9% 100 ML IV SCH (17:06)
[2017-04-18] MEDS: traZODone 50 MG TABLET PO SCH (20:00)
[2017-04-18] MEDS: PRAVASTATIN 40 MG TABLET PO SCH (20:00)
[2017-04-19] MEDS: INSULIN LISPRO 100 UNIT/ML SUBCUT SCH ×2 (07:38→11:47)
[2017-04-19] MEDS ORDERED: ERTAPENEM 1,000 MG in SODIUM CHLORIDE 0.9% 100 ML IV ONE (10:00)
--- NOTE | 2017-04-19 10:06 | Discharge Summary ---
Hospital Course - Hospital Course Hospital Course: 81-year-old female with a history of Alzheimer's dementia and diabetes who presented to the emergency room [facility]. Patient sustained a closed fracture of left distal femur. Dr. Singh was consulted and took her to the OR for a open reduction fixation left periprosthetic femur fracture. Patient did well after surgery. She had some mild anemia for which she received 3 units of packed red blood cells. Patient is still on Arixtra and will require 2 more days of Arixtra. She cannot tolerate aspirin due to allergy. Patient's pain is been well controlled on oxycodone. Patient does have diabetes but hemoglobin A1c was not performed. Patient was on Amaryl at the senior care but her blood sugars bottomed out into the low 30 and had to be placed on D10. We have weaned her off the dextrose and her blood sugars are stable. I would recommend not restarting any medications but continue checking for now. Patient has some mild renal insufficiency she was gently hydrated but her creatinine is remained at 1.6. I would consider her to have chronic stage III renal failure. Patient also has hypothyroidism which is well controlled on levothyroxine. She was on a lot of sedating medications causing metabolic encephalopathy. I have stopped some and reduce the dosing of some of her medicine. Mentally she became more clear. Patient also had a UTI growing ESBL E. coli. Today is day #4 of Invanz. We are asking the senior care to give her an additional dose of Invanz tomorrow. We are currently trying to arrange. Patient is stable and will have to be nonweightbearing until okay with Dr. Singh. Patient was on diuretics at the senior care which I have discontinued. Her BNP is normal her echocardiogram however is still pending. I do not feel that she has congestive heart failure. Transfer back to senior care today. - Time spent with patient Time with patient DS: Greater than 30 minutes (45 min) Diagnosis - Discharge Diagnosis (1) Periprosthetic fracture around internal prosthetic joint Status: Acute (2) Anemia Status: Acute (3) Acute renal failure Status: Acute (4) Hypothyroidism Status: Acute (5) Alzheimer's dementia Status: Acute (6) Diabetes Status: Chronic (7) UTI (urinary tract infection) Status: Acute (8) Metabolic encephalopathy Status: Acute Specialty Discharge - Follow Up or Referrals Follow up with: Alejandro Singh Jr., MD [Physician] - 05/15/17 12:45 pm Discharge Plan - Discharge Data Disposition: Disch/Xfer to [facility] Condition at Discharge: Stable Discharge Diet: diabetic diet (mechanical soft diet ) Activity: other (per ortho instructions) - Discharge Medications New Ertapenem [INVanz] 1,000 mg IV Q24H 1 Days Fondaparinux [Arixtra] 2.5 mg SUBCUT Q24H 2 Days Glucagon 1 mg IM PRN PRN vial PRN Reason: Hypoglycemia w/o IV access Insulin Lispro [HumaLOG] See Protocol SUBCUT ACHS unit oxyCODONE IR [Roxicodone] 5 mg PO Q4H PRN #25 tablet PRN Reason: Pain Mild (1-3) Pantoprazole Tab [Protonix Tab] 40 mg PO DAILY tablet Zinc Oxide 16% Paste [Chica's Butt Paste] 1 applic TOP PRN PRN applic PRN Reason: Diaper Rash Magnesium Hydroxide Susp [Milk of Magnesia] 30 ml PO Q6H PRN PRN Reason: Constipation traZODone [Desyrel] 50 mg PO BEDTIME tablet Continue DULoxetine [Cymbalta] 90 mg PO DAILY@1700 Multivitamin (Centrum) [Centrum Tab] 1 tablet PO DAILY Cyanocobalamin (Vitamin B-12) [Vitamin B-12] 1,000 mcg PO DAILY Donepezil [Aricept] 10 mg PO DAILY Levothyroxine Sodium 75 mcg PO DAILY Pravastatin Sodium 40 mg PO BEDTIME Docusate Sodium [Colace] 100 mg PO DAILY Discontinued clonazePAM [Clonazepam] 0.25 mg PO BID Temazepam [Restoril] 7.5 mg PO MOFR Nitrofurantoin Macro/Owen [Macrobid] 100 mg PO DAILY Sertraline HCl 50 mg PO SUMOTUWETHFR Potassium Chloride Cap/Tab [K Dur] 10 meq PO DAILY Furosemide [Furosemide] 20 mg PO BID Sitagliptin Phosphate [Januvia] 50 mg PO DAILY Losartan/Hctz 50-12.5 [Hyzaar 50-12.5] 2 tablet PO DAILY Glimepiride [Glimepiride] 4 mg PO DAILY Trazodone HCl 100 mg PO BEDTIME No Action Cholecalciferol [Vitamin D3] 2,000 unit PO DAILY - Follow Up or Referral Follow Up: Alejandro Singh Jr., MD [Physician] - 05/15/17 12:45 pm - Forms/Instructions Instructions: Open Reduction and Internal Fixation of a Leg Fracture (DC) Exam - Constitutional Vitals: Period Temp Pulse Resp BP Sys/Melchor Pulse Ox Last 24 Hr 96.8 F-98.8 F 60-76 18-18 109-144/62-85 93-97 General appearance: no acute distress - Respiratory Respiratory exam: Present: clear to auscultation bilaterally. Absent: rhonchi, wheezes - Cardiovascular Cardiovascular exam: Present: regular rate and rhythm, systolic murmur - GI/Abdominal GI/Abdominal exam: Present: normal bowel sounds, soft. Absent: tenderness - Extremities Exam Extremities exam: Present: normal inspection, normal capillary refill Discharge Results Labs on day of discharge: Labs from last 24 hours 04/19/17 04/18/17 04/18/17 07:07 21:25 15:56 POC Glucose 108 H 159 H 200 H 04/18/17 10:35 POC Glucose 205 H DS: Provider Date of admission: 04/14/17 02:56 Primary care physician: Tai Varner Attending physician on admission: Sandy Benavidez MD Consults: 04/14/17 02:56 Consult to Physician [CONS] Routine Comment: femur fracture Consulting Provider: Alejandro Singh Jr. Consulting Provider Notified: Yes When should Consulting Provider be notified: Now Person Notified: toy samuel Date Notified: 04/14/17 Time Notified: 08:07 04/14/17 14:26 Consult to Case Mgmt/Social Srvs [CONS] Routine Reason for Case Mgmt/Social Srvs: Rehab Home Health Equipment Consult Comment: Bedside Commode, CPM, Walker Consult to Occupational Therapy [CONS] Routine Reason for Occupational Therapy: Evaluate and Treat Consult Comment: ADL's Consult to Physical Therapy [CONS] Routine Reason for Physical Therapy: Evaluate and Treat Gait Training Consult Comment: ninfa philippe 04/18/17 13:55 Consult to Case Mgmt/Social Srvs [CONS] Routine Reason for Case Mgmt/Social Srvs: Home IV Therapy Consult Comment: invanz 1 gram IV times one day at [place] Discharging clinician: Polly Awad MD
[2017-04-19] MEDS: DONEPEZIL 10 MG TABLET PO SCH (10:19)
[2017-04-19] MEDS: FONDAPARINUX 2.5 MG/0.5 ML SYRINGE SUBCUT SCH (10:19)
[2017-04-19] MEDS: MULTIVITAMIN (CENTRUM) TABLET PO SCH (10:19)
[2017-04-19] MEDS: CHOLECALCIFEROL 1,000 UNIT TABLET PO SCH (10:20)
[2017-04-19] MEDS: DOCUSATE SODIUM 100 MG CAPSULE PO SCH (10:20)
[2017-04-19] MEDS: PANTOPRAZOLE 40 MG TABLET PO SCH (10:20)
[2017-04-19] MEDS: LEVOTHYROXINE 75 MCG TABLET PO SCH (10:20)
[2017-04-19] MEDS: CYANOCOBALAMIN 500 MCG TABLET PO SCH (10:20)
[2017-04-19] MEDS: POTASSIUM CHLORIDE 10 MEQ TABLET PO SCH (10:20)
--- NOTE | 2017-04-19 10:51 | ECHO Report ---
Norma Adhikari Exam Date: 04/18/2017 09:14 Referring Physician: Technologist: erick Dupree ARDMS, RVT Age: 81 Ht (in): 64 Wt (lb): 190 Gender: F Exam Location: [facility] Echo Indications: Shortness of breath, Femur Fx, Anemia, ARF, Hypothyroidism, UTI, Alzheimers BP: 127 / 65 HR: 74 Rhythm: Sinus Technical Quality: Pt. position made for difficult study IMPRESSIONS Technically difficult study Normal chamber sizes 1-2+ concentric LVH Normal LV systolic function with ejection fraction estimated 55% without obvious wall motion abnormality Aortic sclerosis without stenosis 1+ aortic and tricuspid regurgitation with RVSP 17 mmHg plus RAP Probable stage I diastolic dysfunction MEASUREMENTS (Male / Female) Normal Values 2D ECHO LV Diastolic Diameter PLAX 4.0 cm 4.2 - 5.9 / 3.9 - 5.3 cm LV Systolic Diameter PLAX 2.3 cm LV Fractional Shortening PLAX 42.0 % IVS Diastolic Thickness 1.3 cm 0.6 - 1.0 / 0.6 - 0.9 cm LVPW Diastolic Thickness 1.3 cm 0.6 - 1.0 / 0.6 - 0.9 cm RV Internal Dim ED PLAX 2.4 cm Aortic Root Diameter 3.7 cm LA Systolic Diameter LX 3.9 cm 3.0 - 4.0 / 2.7 - 3.8 cm DOPPLER TR Peak Velocity 209.0 cm/s TR Peak Gradient 17.5 mmHg FINDINGS Left Ventricle Normal left ventricular cavity size. Mild left ventricular hypertrophy. Left ventricular ejection fraction is estimated at Right Ventricle Right Atrium The right atrium is mildly enlarged. Left Atrium The left atrium is normal in size. Mitral Valve Morphologically normal mitral valve without significant stenosis or prolapse. There is no mitral regurgitation. Aortic Valve Trace to mild aortic valve regurgitation. Tricuspid Valve Morphologically normal tricuspid valve. Trace tricuspid valve regurgitation. Tricuspid regurgitation velocities suggest a PAP of 27 mmHg. Pulmonic Valve Morphologically normal pulmonic valve without significant stenosis. There is no pulmonic regurgitation. Pericardium Normal pericardium without effusion. Aorta Normal ascending aorta dimension. Stef Wright (Electronically Signed) Final Date: 19 April 2017 10:49
[2017-04-19 11:18] VITALS: BP 113/57
== END 2017-04-19 13:58 | DRG 480 ==
LOC: EDBD → EDUNIT# → N.ED 01:09 → N.EDINP 02:56 → SUATTDRO 02:56 → N.3E 04:12
PROVIDERS: ADMIT Family Medicine; ATTEND Internal Medicine

== ENCOUNTER 2017-06-17 03:10 | Inpatient (IN) ==
[2017-06-17] MEDS ORDERED: CEFEPIME 2,000 MG in SODIUM CHLORIDE 0.9% 100 ML IV STA (03:39)
[2017-06-17] MEDS ORDERED: VANCOMYCIN INJ 1,000 MG in SODIUM CHLORIDE 0.9% 250 ML IV STA (03:40)
[2017-06-17 03:50] LABS: Basophils % 0.1 % (0.0-0.8); Hematocrit 36.8 VOL% (35.7-47.0); Hemoglobin 11.6 GM/DL (12.0-16.0); Immature Granulocytes % 0.4 %; Immature Granulocytes Absolute 0.03 #; Lymphocytes # 0.6 10*3/uL (1.4-4.0); Lymphocytes % 6.9 % (21.3-54.2); Mean Corpuscular HGB Conc 31.5 GM/DL (32-36); Mean Corpuscular Hemoglobin 27 PG (27-34); Mean Platelet Volume 10.1 FL (9.6-12.0); Monocytes # 0.2 10*3/uL (0.11-0.8); Monocytes % 2.9 % (1.7-12.7); Neutrophils # 7.5 10*3/uL (1.4-7.4); Neutrophils % 89.7 % (38.7-73.9); Platelet Count 293 T/CUMM (130-400); Red Blood Count 4.33 MC/CUMM (3.8-5.5); Red Cell Distribution Width 15.7 % (9.3-17.3); White Blood Count 8.3 T/CUMM (4-12)
[2017-06-17] MEDS ORDERED: VANCOMYCIN 1,000 MG VIAL ONE (03:55)
[2017-06-17 03:56] LABS: VBG Base Excess -0.2 MEQ/L (0-4); VBG HCO3 24.3 MEQ/L (24-28); VBG Oxygen Saturation 99.1 %; VBG PCO2 42.4 MMHG (41-51); VBG PH 7.379
[2017-06-17 04:05] LABS: Apearance,Urine Slightly Hazy (Clear); Bacteria,Urine Occasional /HPF (Few); Bilirubin,Urine Negative (Negative); Blood, Urine Small mg/dL (Negative); Glucose,Urine (UA) Negative (Negative); Hyaline Casts,Urine 4 /LPF (0-3); Ketones,Urine 20 mg/dL (Negative); Mucus,Urine Occasional /LPF (Occasional); Nitrite,Urine Negative (Negative); Protein,Urine >=500 MG/DL; RBC,Urine 12 /HPF (0-4); Squamous Epithelial Cell,Urine Occasional /HPF (0-10); Urine Color Yellow (Yellow); Urine Specific Gravity 1.022 (1.001-1.035); Urine Urobilinogen < 2.0 EU/DL (0.2-1.0); WBC,Urine 2 /HPF (0-6)
[2017-06-17 04:18] LABS: Albumin 3.2 G/DL (3.4-5.0); Bilirubin,Total 0.7 MG/DL (0.2-1.0); Osmolality,Calculated 285.5 MOS/KG (273-304); Potassium 3.9 MMOL/L (3.5-5.1); Total Protein 7.3 G/DL (6.4-8.3)
[2017-06-17] MEDS ORDERED: ONDANSETRON 4 MG/2 ML VIAL IV PRN (06:20)
[2017-06-17] MEDS ORDERED: ACETAMINOPHEN 325 MG TABLET PO PRN (06:20)
[2017-06-17] MEDS ORDERED: ZINC OXIDE 16% PASTE 57 GM TUBE TOP PRN (06:27)
[2017-06-17] MEDS ORDERED: DEXTROSE 50% 25 GM/50 ML VIAL IV PRN (06:28)
[2017-06-17] MEDS ORDERED: GLUCAGON 1 MG VIAL IM PRN (06:28)
[2017-06-17] MEDS ORDERED: MORPHINE 2 MG/1 ML SYRINGE IV PRN (06:30)
[2017-06-17] MEDS ORDERED: ALBUTEROL/IPRATROPIUM 3 ML NEB RESP TX PRN (06:35)
[2017-06-17] MEDS ORDERED: hydrALAZINE 20 MG/1 ML VIAL IV PRN (06:38)
[2017-06-17] MEDS ORDERED: INFLUENZA VIRUS VACCINE 0.5 ML SYRINGE IM ONE (07:47)
[2017-06-17] MEDS ORDERED: PANTOPRAZOLE 40 MG TABLET PO SCH (09:00)
[2017-06-17] MEDS: VANCOMYCIN INJ 1,250 MG in SODIUM CHLORIDE 0.9% 250 ML IV SCH (10:43)
[2017-06-17] MEDS: PANTOPRAZOLE 40 MG VIAL IV SCH (10:45)
[2017-06-17] MEDS: SCOPOLAMINE 1.5 MG PATCH TRANSDERM SCH (10:45)
[2017-06-17] MEDS: ENOXAPARIN 40 MG/0.4 ML SYRINGE SUBCUT SCH (10:45)
[2017-06-17] MEDS: INSULIN LISPRO 100 UNIT/ML SUBCUT SCH ×4 (13:50→19:25)
[2017-06-17] MEDS: PIPERACILLIN/TAZOBACTAM 3,375 MG in SODIUM CHLORIDE 0.9% 100 ML IV SCH ×3 (13:51→20:32)
[2017-06-17] MEDS: FUROSEMIDE 40 MG/4 ML VIAL IV SCH (17:19)
[2017-06-18] MEDS: INSULIN LISPRO 100 UNIT/ML SUBCUT SCH ×10 (00:36→23:58)
[2017-06-18] MEDS ORDERED: ACETAMINOPHEN 325 MG SUPP RECTAL PRN (00:43)
[2017-06-18 03:46] LABS: ABG Base Excess 2.6 MMOL/L (-2.5-2.5); ABG HCO3 25.9 MMOL/L (20-26); ABG Oxygen Saturation 95.3 % (95-100); ABG PCO2 35.8 MM HG (35-48); ABG PH 7.478 (7.35-7.45); ABG PO2 68.7 MM HG (80-95); Allen Test Positive
[2017-06-18] MEDS: ENOXAPARIN 40 MG/0.4 ML SYRINGE SUBCUT SCH (05:36)
[2017-06-18] MEDS: PIPERACILLIN/TAZOBACTAM 3,375 MG in SODIUM CHLORIDE 0.9% 100 ML IV SCH ×3 (05:36→21:28)
[2017-06-18 06:43] LABS: Basophils % 0.1 % (0.0-0.8); Hematocrit 34.1 VOL% (35.7-47.0); Hemoglobin 10.8 GM/DL (12.0-16.0); Immature Granulocytes % 0.5 %; Immature Granulocytes Absolute 0.05 #; Lymphocytes % 10.7 % (21.3-54.2); Mean Corpuscular HGB Conc 31.7 GM/DL (32-36); Mean Corpuscular Hemoglobin 27 PG (27-34); Mean Corpuscular Volume 84.6 FL (87-102); Mean Platelet Volume 10.2 FL (9.6-12.0); Monocytes # 0.8 10*3/uL (0.11-0.8); Monocytes % 8.7 % (1.7-12.7); Neutrophils # 7.7 10*3/uL (1.4-7.4); Platelet Count 303 T/CUMM (130-400); Red Blood Count 4.03 MC/CUMM (3.8-5.5); Red Cell Distribution Width 16.2 % (9.3-17.3); White Blood Count 9.7 T/CUMM (4-12)
[2017-06-18 07:10] LABS: Calcium 9.3 MG/DL (8.5-10.1); Osmolality,Calculated 298.7 MOS/KG (273-304); Potassium 3.6 MMOL/L (3.5-5.1)
[2017-06-18 07:14] LABS: Albumin 2.9 G/DL (3.4-5.0); Calcium 9.1 MG/DL (8.5-10.1); Osmolality,Calculated 298.7 MOS/KG (273-304); Potassium 3.7 MMOL/L (3.5-5.1); Risk Ratio 3.24; Total Protein 6.4 G/DL (6.4-8.3); VLDL CHOLESTEROL 24.6 MG/DL
[2017-06-18 07:22] LABS: Calcium 9.1 MG/DL (8.5-10.1); Osmolality,Calculated 296.8 MOS/KG (273-304); Potassium 3.7 MMOL/L (3.5-5.1)
[2017-06-18] MEDS: VANCOMYCIN INJ 1,250 MG in SODIUM CHLORIDE 0.9% 250 ML IV SCH (11:26)
[2017-06-18] MEDS: FUROSEMIDE 40 MG/4 ML VIAL IV SCH ×2 (11:27→16:38)
[2017-06-18] MEDS: PANTOPRAZOLE 40 MG VIAL IV SCH (11:28)
[2017-06-19] MEDS: ENOXAPARIN 40 MG/0.4 ML SYRINGE SUBCUT SCH (05:53)
[2017-06-19] MEDS: INSULIN LISPRO 100 UNIT/ML SUBCUT SCH ×6 (05:53→19:04)
[2017-06-19] MEDS: PIPERACILLIN/TAZOBACTAM 3,375 MG in SODIUM CHLORIDE 0.9% 100 ML IV SCH (05:53)
[2017-06-19 06:58] LABS: Basophils % 0.3 % (0.0-0.8); Eosinophils % 0.6 % (0.00-10.9); Hematocrit 30.1 VOL% (35.7-47.0); Hemoglobin 9.5 GM/DL (12.0-16.0); Immature Granulocytes % 0.3 %; Immature Granulocytes Absolute 0.02 #; Lymphocytes # 1.3 10*3/uL (1.4-4.0); Lymphocytes % 19.7 % (21.3-54.2); Mean Corpuscular HGB Conc 31.6 GM/DL (32-36); Mean Corpuscular Hemoglobin 27 PG (27-34); Mean Corpuscular Volume 85.8 FL (87-102); Mean Platelet Volume 10.2 FL (9.6-12.0); Monocytes # 0.7 10*3/uL (0.11-0.8); Monocytes % 11.7 % (1.7-12.7); Neutrophils # 4.3 10*3/uL (1.4-7.4); Neutrophils % 67.4 % (38.7-73.9); Platelet Count 243 T/CUMM (130-400); Red Blood Count 3.51 MC/CUMM (3.8-5.5); Red Cell Distribution Width 16.1 % (9.3-17.3); White Blood Count 6.3 T/CUMM (4-12)
[2017-06-19 07:34] LABS: Calcium 8.8 MG/DL (8.5-10.1); Calcium 8.9 MG/DL (8.5-10.1); Magnesium 1.9 MG/DL (1.8-2.4); Osmolality,Calculated 298.6 MOS/KG (273-304); Osmolality,Calculated 300.4 MOS/KG (273-304); Potassium 3.1 MMOL/L (3.5-5.1)
[2017-06-19] MEDS: FUROSEMIDE 40 MG/4 ML VIAL IV SCH ×2 (09:43→16:12)
[2017-06-19] MEDS: PANTOPRAZOLE 40 MG VIAL IV SCH (09:49)
[2017-06-19] MEDS: LISINOPRIL 10 MG TABLET PO SCH ×2 (09:52→21:00)
[2017-06-19] MEDS: POTASSIUM CHLORIDE RIDER 10 MEQ in PREMIX 1 EACH IV PRN ×4 (09:54→20:22)
[2017-06-19] MEDS: VANCOMYCIN INJ 1,250 MG in SODIUM CHLORIDE 0.9% 250 ML IV SCH (12:17)
[2017-06-19] MEDS: PIPERACILLIN/TAZOBACTAM 3,375 MG in SODIUM CHLORIDE 0.9% 50 ML IV SCH ×2 (14:47→22:08)
[2017-06-20] MEDS: INSULIN LISPRO 100 UNIT/ML SUBCUT SCH ×7 (00:08→18:48)
[2017-06-20] MEDS: POTASSIUM CHLORIDE RIDER 10 MEQ in PREMIX 1 EACH IV PRN ×6 (02:11→15:41)
[2017-06-20] MEDS: PIPERACILLIN/TAZOBACTAM 3,375 MG in SODIUM CHLORIDE 0.9% 50 ML IV SCH ×3 (07:09→23:26)
[2017-06-20 08:43] LABS: Basophils % 0.3 % (0.0-0.8); Eosinophils % 0.5 % (0.00-10.9); Hemoglobin 10.2 GM/DL (12.0-16.0); Immature Granulocytes % 0.4 %; Immature Granulocytes Absolute 0.03 #; Lymphocytes # 1.1 10*3/uL (1.4-4.0); Lymphocytes % 14.2 % (21.3-54.2); Mean Corpuscular HGB Conc 30.9 GM/DL (32-36); Mean Corpuscular Hemoglobin 26 PG (27-34); Mean Corpuscular Volume 85.5 FL (87-102); Mean Platelet Volume 9.8 FL (9.6-12.0); Monocytes # 0.6 10*3/uL (0.11-0.8); Monocytes % 7.6 % (1.7-12.7); Neutrophils # 5.7 10*3/uL (1.4-7.4); Platelet Count 279 T/CUMM (130-400); Red Blood Count 3.86 MC/CUMM (3.8-5.5); Red Cell Distribution Width 15.7 % (9.3-17.3); White Blood Count 7.4 T/CUMM (4-12)
[2017-06-20 09:07] LABS: Calcium 9.2 MG/DL (8.5-10.1); Magnesium 1.9 MG/DL (1.8-2.4); Osmolality,Calculated 294.7 MOS/KG (273-304); Potassium 3.7 MMOL/L (3.5-5.1)
[2017-06-20] MEDS: FUROSEMIDE 40 MG/4 ML VIAL IV SCH ×2 (09:38→17:00)
[2017-06-20] MEDS: ENOXAPARIN 40 MG/0.4 ML SYRINGE SUBCUT SCH (09:43)
[2017-06-20] MEDS: SCOPOLAMINE 1.5 MG PATCH TRANSDERM SCH (09:43)
[2017-06-20] MEDS: LISINOPRIL 10 MG TABLET PO SCH ×2 (09:43→21:03)
[2017-06-20] MEDS: PANTOPRAZOLE 40 MG VIAL IV SCH (09:45)
[2017-06-20] MEDS: VANCOMYCIN INJ 1,250 MG in SODIUM CHLORIDE 0.9% 250 ML IV SCH (12:09)
[2017-06-21] MEDS: INSULIN LISPRO 100 UNIT/ML SUBCUT SCH ×4 (06:10→07:13)
[2017-06-21] MEDS: PIPERACILLIN/TAZOBACTAM 3,375 MG in SODIUM CHLORIDE 0.9% 50 ML IV SCH ×3 (07:00→21:12)
[2017-06-21 07:01] LABS: Basophils % 0.2 % (0.0-0.8); Eosinophils # 0.1 10*3/uL (0.0-0.87); Eosinophils % 2.1 % (0.00-10.9); Hematocrit 30.9 VOL% (35.7-47.0); Hemoglobin 9.8 GM/DL (12.0-16.0); Immature Granulocytes % 0.5 %; Immature Granulocytes Absolute 0.03 #; Lymphocytes # 1.1 10*3/uL (1.4-4.0); Lymphocytes % 16.9 % (21.3-54.2); Mean Corpuscular HGB Conc 31.7 GM/DL (32-36); Mean Corpuscular Hemoglobin 27 PG (27-34); Mean Corpuscular Volume 85.4 FL (87-102); Mean Platelet Volume 10.1 FL (9.6-12.0); Monocytes # 0.7 10*3/uL (0.11-0.8); Monocytes % 10.3 % (1.7-12.7); Neutrophils # 4.7 10*3/uL (1.4-7.4); Platelet Count 295 T/CUMM (130-400); Red Blood Count 3.62 MC/CUMM (3.8-5.5); Red Cell Distribution Width 15.7 % (9.3-17.3); White Blood Count 6.6 T/CUMM (4-12)
[2017-06-21 07:26] LABS: Calcium 9.2 MG/DL (8.5-10.1); Magnesium 1.9 MG/DL (1.8-2.4); Osmolality,Calculated 301.6 MOS/KG (273-304); Potassium 3.5 MMOL/L (3.5-5.1)
[2017-06-21] MEDS: LISINOPRIL 10 MG TABLET PO SCH ×2 (09:41→21:11)
[2017-06-21] MEDS: ENOXAPARIN 40 MG/0.4 ML SYRINGE SUBCUT SCH (09:41)
[2017-06-21] MEDS: PANTOPRAZOLE 40 MG VIAL IV SCH (09:42)
[2017-06-21] MEDS: FUROSEMIDE 40 MG/4 ML VIAL IV SCH (09:42)
[2017-06-21] MEDS: VANCOMYCIN INJ 1,250 MG in SODIUM CHLORIDE 0.9% 250 ML IV SCH (12:34)
[2017-06-21] MEDS: FUROSEMIDE 40 MG TABLET PO SCH (16:48)
[2017-06-22] MEDS: PIPERACILLIN/TAZOBACTAM 3,375 MG in SODIUM CHLORIDE 0.9% 50 ML IV SCH ×3 (04:52→20:44)
[2017-06-22 05:59] LABS: Basophils % 0.3 % (0.0-0.8); Eosinophils # 0.2 10*3/uL (0.0-0.87); Eosinophils % 2.7 % (0.00-10.9); Hematocrit 30.3 VOL% (35.7-47.0); Hemoglobin 9.7 GM/DL (12.0-16.0); Immature Granulocytes % 0.5 %; Immature Granulocytes Absolute 0.03 #; Lymphocytes # 1.2 10*3/uL (1.4-4.0); Lymphocytes % 18.1 % (21.3-54.2); Mean Corpuscular Hemoglobin 27 PG (27-34); Mean Corpuscular Volume 85.6 FL (87-102); Mean Platelet Volume 9.8 FL (9.6-12.0); Monocytes # 0.7 10*3/uL (0.11-0.8); Monocytes % 10.6 % (1.7-12.7); Neutrophils # 4.3 10*3/uL (1.4-7.4); Neutrophils % 67.8 % (38.7-73.9); Platelet Count 258 T/CUMM (130-400); Red Blood Count 3.54 MC/CUMM (3.8-5.5); Red Cell Distribution Width 15.5 % (9.3-17.3); White Blood Count 6.4 T/CUMM (4-12)
[2017-06-22 06:30] LABS: Calcium 8.9 MG/DL (8.5-10.1); Magnesium 2.2 MG/DL (1.8-2.4); Osmolality,Calculated 300.4 MOS/KG (273-304); Potassium 3.2 MMOL/L (3.5-5.1)
[2017-06-22] MEDS: LISINOPRIL 10 MG TABLET PO SCH ×2 (10:41→20:43)
[2017-06-22] MEDS: ENOXAPARIN 40 MG/0.4 ML SYRINGE SUBCUT SCH (10:41)
[2017-06-22] MEDS: POTASSIUM CHLORIDE RIDER 10 MEQ in PREMIX 1 EACH IV PRN ×3 (10:41→20:43)
[2017-06-22] MEDS: FUROSEMIDE 40 MG TABLET PO SCH ×2 (10:41→17:44)
[2017-06-22] MEDS: PANTOPRAZOLE 40 MG VIAL IV SCH (10:42)
[2017-06-22] MEDS: INSULIN LISPRO 100 UNIT/ML SUBCUT SCH ×2 (12:43→18:19)
[2017-06-22] MEDS: VANCOMYCIN INJ 1,250 MG in SODIUM CHLORIDE 0.9% 250 ML IV SCH (12:43)
[2017-06-23] MEDS: INSULIN LISPRO 100 UNIT/ML SUBCUT SCH ×3 (00:31→12:47)
[2017-06-23] MEDS: POTASSIUM CHLORIDE RIDER 10 MEQ in PREMIX 1 EACH IV PRN ×3 (01:23→11:07)
[2017-06-23] MEDS: PIPERACILLIN/TAZOBACTAM 3,375 MG in SODIUM CHLORIDE 0.9% 50 ML IV SCH (04:19)
[2017-06-23 06:47] LABS: Magnesium 2.2 MG/DL (1.8-2.4); Osmolality,Calculated 296.8 MOS/KG (273-304); Potassium 3.7 MMOL/L (3.5-5.1)
[2017-06-23] MEDS: FUROSEMIDE 40 MG TABLET PO SCH (08:55)
[2017-06-23] MEDS: LISINOPRIL 10 MG TABLET PO SCH (09:17)
[2017-06-23] MEDS: SCOPOLAMINE 1.5 MG PATCH TRANSDERM SCH (09:18)
[2017-06-23] MEDS: ENOXAPARIN 40 MG/0.4 ML SYRINGE SUBCUT SCH (09:20)
[2017-06-23] MEDS: PANTOPRAZOLE 40 MG VIAL IV SCH (09:49)
[2017-06-23] MEDS: VANCOMYCIN INJ 1,250 MG in SODIUM CHLORIDE 0.9% 250 ML IV SCH (11:42)
[2017-06-23 11:57] VITALS: BP 143/71
== END 2017-06-23 14:00 | DRG 193 ==
LOC: EDBD → EDUNIT# → N.ED 03:10 → N.EDINP 06:20 → SUATTDRO 06:20 → N.EDINP 07:11 → N.2E 07:32
PROVIDERS: ATTEND Internal Medicine

== ENCOUNTER 2018-08-11 04:54 | Inpatient (IN) ==
[2018-08-11] MEDS ORDERED: ONDANSETRON 4 MG/2 ML VIAL IV STA (05:23)
[2018-08-11] MEDS ORDERED: MORPHINE 4 MG/1 ML VIAL IV STA (05:23)
[2018-08-11 06:13] LABS: Basophils % 0.4 % (0.0-0.8); Eosinophils # 0.1 10*3/uL (0.0-0.87); Hematocrit 31.2 VOL% (35.7-47.0); Hemoglobin 9.7 GM/DL (12.0-16.0); Immature Granulocytes % 0.4 %; Immature Granulocytes Absolute 0.03 #; Lymphocytes # 1.4 10*3/uL (1.4-4.0); Lymphocytes % 20.4 % (21.3-54.2); Mean Corpuscular HGB Conc 31.1 GM/DL (32-36); Mean Corpuscular Hemoglobin 30 PG (27-34); Mean Platelet Volume 9.7 FL (9.6-12.0); Monocytes # 0.6 10*3/uL (0.11-0.8); Monocytes % 9.1 % (1.7-12.7); Neutrophils # 4.8 10*3/uL (1.4-7.4); Neutrophils % 67.7 % (38.7-73.9); Platelet Count 241 T/CUMM (130-400); Red Blood Count 3.25 MC/CUMM (3.8-5.5); Red Cell Distribution Width 12.9 % (9.3-17.3); White Blood Count 7.1 T/CUMM (4-12)
[2018-08-11 06:30] LABS: Albumin 3.7 G/DL (3.4-5.0); Bilirubin,Total 0.5 MG/DL (0.2-1.0); Calcium 9.2 MG/DL (8.5-10.1); Osmolality,Calculated 296.3 MOS/KG (273-304); Potassium 5.2 MMOL/L (3.5-5.1); Total Protein 7.2 G/DL (6.4-8.3)
[2018-08-11] MEDS ORDERED: ONDANSETRON 4 MG/2 ML VIAL IV PRN ×2 (07:26→15:29)
[2018-08-11] MEDS ORDERED: GLUCAGON 1 MG VIAL IM PRN (07:39)
[2018-08-11] MEDS ORDERED: DEXTROSE 50% 25 GM/50 ML VIAL IV PRN (07:39)
[2018-08-11] MEDS ORDERED: hydrALAZINE 20 MG/1 ML VIAL IV PRN (07:46)
[2018-08-11 08:01] LABS: INR 0.9; PT Patient Result 9.9 SECS
[2018-08-11] MEDS: PANTOPRAZOLE 40 MG TABLET PO SCH (10:42)
[2018-08-11] MEDS: SODIUM CHLORIDE 0.9% 1,000 ML IV SCH ×2 (11:30→23:59)
[2018-08-11 11:39] LABS: Eosinophils 1 % (0-10); Lymphocytes 14 % (20-55); Platelet Estimate Normal; Polychromasia Slight; Segmented Neutrophils 74 % (50-85); Total Cells Counted 100
[2018-08-11] MEDS ORDERED: BUPIVACAINE SPINAL 0.75% 2 ML AMP SPINAL ONE (13:45)
[2018-08-11] MEDS ORDERED: ceFAZolin 1,000 MG VIAL ONE (14:15)
[2018-08-11] MEDS: INSULIN LISPRO 100 UNIT/ML SUBCUT SCH ×3 (14:19→21:49)
[2018-08-11] MEDS ORDERED: HYDROmorphone 2 MG/1 ML VIAL IV PRN (15:29)
[2018-08-11] MEDS ORDERED: LACTATED RINGERS 1,000 ML IV SCH (15:30)
[2018-08-11 17:28] LABS: Basophils % 0.1 % (0.0-0.8); Hematocrit 24.7 VOL% (35.7-47.0); Hemoglobin 7.7 GM/DL (12.0-16.0); Immature Granulocytes % 0.8 %; Immature Granulocytes Absolute 0.09 #; Lymphocytes # 0.6 10*3/uL (1.4-4.0); Lymphocytes % 5.2 % (21.3-54.2); Mean Corpuscular HGB Conc 31.2 GM/DL (32-36); Mean Corpuscular Hemoglobin 30 PG (27-34); Mean Corpuscular Volume 97.2 FL (87-102); Mean Platelet Volume 9.4 FL (9.6-12.0); Monocytes # 0.8 10*3/uL (0.11-0.8); Monocytes % 7.3 % (1.7-12.7); Neutrophils # 9.9 10*3/uL (1.4-7.4); Neutrophils % 86.6 % (38.7-73.9); Platelet Count 247 T/CUMM (130-400); Red Blood Count 2.54 MC/CUMM (3.8-5.5); White Blood Count 11.5 T/CUMM (4-12)
[2018-08-11] MEDS: ACETAMINOPHEN 325 MG TABLET PO PRN (18:38)
[2018-08-11 19:11] LABS: Apearance,Urine Slightly Hazy (Clear); Bacteria,Urine Occasional /HPF (Few); Bilirubin,Urine Negative (Negative); Blood, Urine Negative (Negative); Glucose,Urine (UA) Negative (Negative); Ketones,Urine Negative (Negative); Mucus,Urine Occasional /LPF (Occasional); Nitrite,Urine Negative (Negative); Protein,Urine Negative; RBC,Urine 1 /HPF (0-4); Urine Color Yellow (Yellow); Urine Specific Gravity 1.014 (1.001-1.035); Urine Urobilinogen < 2.0 EU/DL (0.2-1.0); WBC,Urine 13 /HPF (0-6)
[2018-08-11] MEDS ORDERED: SODIUM CHLORIDE 0.9% 500 ML IV ONE (19:24)
[2018-08-11] MEDS ORDERED: SODIUM CHLORIDE 0.9% 1,000 ML IV PRN (19:26)
[2018-08-11] MEDS ORDERED: PROPOFOL 200 MG/20 ML VIAL IV ONE (21:14)
[2018-08-11] MEDS ORDERED: SEVOFLURANE 1 UNIT/15 MINUTE INH ONE (21:15)
[2018-08-11] MEDS ORDERED: ACETAMINOPHEN 1,000 MG/100 ML VIAL IV ONE (21:15)
[2018-08-11] MEDS ORDERED: GLYCOPYRROLATE 0.4 MG/2 ML VIAL ONE (21:15)
[2018-08-11] MEDS ORDERED: ONDANSETRON 4 MG/2 ML VIAL ONE (21:15)
[2018-08-11] MEDS ORDERED: fentaNYL 100 MCG/2 ML VIAL ONE (21:15)
[2018-08-11] MEDS ORDERED: PHENYLEPHRINE DRIP 20 MG/250 ML PREMIX IV ONE (21:15)
[2018-08-11] MEDS ORDERED: NEOSTIGMINE 10 MG/10 ML VIAL ONE (21:16)
[2018-08-11] MEDS ORDERED: PHENYLEPHRINE 1 MG/10 ML SYRINGE IV ONE (21:16)
[2018-08-11] MEDS ORDERED: ROCURONIUM 100 MG/10 ML VIAL IV ONE (21:16)
[2018-08-11] MEDS: ENOXAPARIN 30 MG/0.3 ML SYRINGE SUBCUT SCH (21:24)
[2018-08-12 06:45] LABS: Basophils % 0.1 % (0.0-0.8); Hematocrit 24.6 VOL% (35.7-47.0); Hemoglobin 7.7 GM/DL (12.0-16.0); Immature Granulocytes % 0.6 %; Immature Granulocytes Absolute 0.06 #; Lymphocytes % 10.6 % (21.3-54.2); Mean Corpuscular HGB Conc 31.3 GM/DL (32-36); Mean Corpuscular Hemoglobin 30 PG (27-34); Mean Corpuscular Volume 95.3 FL (87-102); Mean Platelet Volume 10.8 FL (9.6-12.0); Monocytes # 1.2 10*3/uL (0.11-0.8); Monocytes % 12.3 % (1.7-12.7); Neutrophils # 7.5 10*3/uL (1.4-7.4); Neutrophils % 76.4 % (38.7-73.9); Platelet Count 134 T/CUMM (130-400); Red Blood Count 2.58 MC/CUMM (3.8-5.5); Red Cell Distribution Width 14.1 % (9.3-17.3); White Blood Count 9.8 T/CUMM (4-12)
[2018-08-12] MEDS ORDERED: SODIUM CHLORIDE 0.9% 1,000 ML IV PRN (07:51)
[2018-08-12 08:07] LABS: Albumin 2.9 G/DL (3.4-5.0); Bilirubin,Total 0.9 MG/DL (0.2-1.0); Calcium 8.2 MG/DL (8.5-10.1); Osmolality,Calculated 297.4 MOS/KG (273-304); Risk Ratio 2.11; Thyroid Stimulating Hormone 0.757 uIU/ml (0.358-3.74); Total Protein 6.1 G/DL (6.4-8.3); VLDL CHOLESTEROL 15.8 MG/DL
[2018-08-12 08:09] LABS: Potassium 6.2 MMOL/L (3.5-5.1)
[2018-08-12] MEDS ORDERED: FUROSEMIDE 20 MG TABLET PO SCH (09:00)
[2018-08-12] MEDS: clonazePAM 0.5 MG TABLET PO SCH ×2 (10:22→21:39)
[2018-08-12] MEDS: SODIUM POLYSTYRENE SULFATE 15 GM/60 ML BOTTLE PO SCH ×3 (10:22→21:38)
[2018-08-12] MEDS: INSULIN LISPRO 100 UNIT/ML SUBCUT SCH ×4 (10:22→21:38)
[2018-08-12] MEDS: PANTOPRAZOLE 40 MG TABLET PO SCH (10:23)
[2018-08-12] MEDS: LEVOTHYROXINE 75 MCG TABLET PO SCH (10:23)
[2018-08-12] MEDS: FUROSEMIDE 20 MG/2 ML VIAL IV SCH (16:22)
[2018-08-12 16:37] LABS: Hematocrit 29.7 VOL% (35.7-47.0)
[2018-08-12 16:39] LABS: Hemoglobin 9.5 GM/DL (12.0-16.0)
[2018-08-12] MEDS: ACETAMINOPHEN 325 MG TABLET PO PRN (16:45)
[2018-08-12] MEDS: DONEPEZIL 10 MG TABLET PO SCH (21:39)
[2018-08-12] MEDS: ENOXAPARIN 30 MG/0.3 ML SYRINGE SUBCUT SCH (21:40)
[2018-08-13] MEDS: SODIUM POLYSTYRENE SULFATE 15 GM/60 ML BOTTLE PO SCH ×5 (03:56→22:05)
[2018-08-13 05:49] LABS: Basophils % 0.1 % (0.0-0.8); Eosinophils % 0.4 % (0.00-10.9); Hemoglobin 9.5 GM/DL (12.0-16.0); Immature Granulocytes % 0.4 %; Immature Granulocytes Absolute 0.03 #; Lymphocytes # 0.9 10*3/uL (1.4-4.0); Lymphocytes % 11.3 % (21.3-54.2); Mean Corpuscular HGB Conc 31.7 GM/DL (32-36); Mean Corpuscular Hemoglobin 29 PG (27-34); Mean Corpuscular Volume 92.6 FL (87-102); Mean Platelet Volume 9.7 FL (9.6-12.0); Monocytes # 1.2 10*3/uL (0.11-0.8); Monocytes % 15.2 % (1.7-12.7); Neutrophils # 5.6 10*3/uL (1.4-7.4); Neutrophils % 72.6 % (38.7-73.9); Platelet Count 141 T/CUMM (130-400); Red Blood Count 3.24 MC/CUMM (3.8-5.5); Red Cell Distribution Width 14.5 % (9.3-17.3); White Blood Count 7.7 T/CUMM (4-12)
[2018-08-13 06:16] LABS: Calcium 8.1 MG/DL (8.5-10.1); Osmolality,Calculated 298.8 MOS/KG (273-304); Potassium 4.4 MMOL/L (3.5-5.1)
[2018-08-13] MEDS: LEVOTHYROXINE 75 MCG TABLET PO SCH (06:46)
[2018-08-13] MEDS: INSULIN LISPRO 100 UNIT/ML SUBCUT SCH ×4 (07:49→22:00)
[2018-08-13] MEDS: cefTRIAXone 1,000 MG in SYRINGE 1 EACH IV SCH (09:51)
[2018-08-13] MEDS: clonazePAM 0.5 MG TABLET PO SCH ×3 (09:51→22:05)
[2018-08-13] MEDS: PANTOPRAZOLE 40 MG TABLET PO SCH (09:51)
[2018-08-13] MEDS: FUROSEMIDE 20 MG/2 ML VIAL IV SCH ×2 (09:56→16:52)
[2018-08-13] MEDS: DONEPEZIL 10 MG TABLET PO SCH (21:59)
[2018-08-13] MEDS: ENOXAPARIN 30 MG/0.3 ML SYRINGE SUBCUT SCH (22:01)
[2018-08-14] MEDS: SODIUM POLYSTYRENE SULFATE 15 GM/60 ML BOTTLE PO SCH ×2 (03:25→09:21)
[2018-08-14] MEDS: LEVOTHYROXINE 75 MCG TABLET PO SCH (06:40)
[2018-08-14] MEDS: INSULIN LISPRO 100 UNIT/ML SUBCUT SCH ×2 (07:03→12:55)
[2018-08-14] MEDS: cefTRIAXone 1,000 MG in SYRINGE 1 EACH IV SCH (09:20)
[2018-08-14] MEDS: clonazePAM 0.5 MG TABLET PO SCH (09:21)
[2018-08-14] MEDS: PANTOPRAZOLE 40 MG TABLET PO SCH (09:21)
[2018-08-14] MEDS: FUROSEMIDE 20 MG/2 ML VIAL IV SCH (09:27)
[2018-08-14 11:01] VITALS: BP 109/66
== END 2018-08-14 12:55 | DRG 481 ==
LOC: EDUNIT# → SUATTDRO → EDBD → N.ED 04:54 → N.EDINP 07:23 → N.3E 09:44
PROVIDERS: ADMIT Nurse Practitioner Acute Care; ATTEND Internal Medicine

== ENCOUNTER 2019-04-18 16:21 | Inpatient (IN) ==
[2019-04-18 17:29] LABS: Basophils % 0.3 % (0.0-0.8); Eosinophils % 0.2 % (0.00-10.9); Hematocrit 29.9 VOL% (35.7-47.0); Hemoglobin 9.4 GM/DL (12.0-16.0); Immature Granulocytes % 0.4 %; Immature Granulocytes Absolute 0.04 #; Lymphocytes % 11.3 % (21.3-54.2); Mean Corpuscular HGB Conc 31.4 GM/DL (32-36); Mean Corpuscular Volume 95.2 FL (87-102); Monocytes % 6.5 % (1.7-12.7); Neutrophils % 81.3 % (38.7-73.9); Platelet Count 266 T/CUMM (130-400); Red Blood Count 3.14 MC/CUMM (3.8-5.5); Red Cell Distribution Width 12.8 % (9.3-17.3); White Blood Count 9.1 T/CUMM (4-12)
[2019-04-18 17:39] LABS: INR 0.9; Partial Thromboplastin Time < 21.0 SECS (0-40)
[2019-04-18 18:13] LABS: Albumin 3.3 G/DL (3.4-5.0); Bilirubin,Total 0.4 MG/DL (0.2-1.0); Calcium 9.2 MG/DL (8.5-10.1); Osmolality,Calculated 295.1 MOS/KG (273-304); Total Protein 7.1 G/DL (6.4-8.3)
[2019-04-18 18:21] LABS: Apearance,Urine CLOUDY (Clear); Bilirubin,Urine Negative (Negative); Blood, Urine Small mg/dL (Negative); Glucose,Urine (UA) Negative (Negative); Ketones,Urine Negative (Negative); Nitrite,Urine Negative (Negative); Protein,Urine 30 MG/DL; RBC,Urine 55 /HPF (0-4); Urine Color Yellow (Yellow); Urine Specific Gravity 1.015 (1.001-1.035); Urine Urobilinogen < 2.0 EU/DL (0.2-1.0); WBC,Urine 679 /HPF (0-6)
[2019-04-18] MEDS ORDERED: ONDANSETRON 4 MG/2 ML VIAL IV PRN (18:23)
[2019-04-18] MEDS ORDERED: DEXTROSE 10% 250 ML BAG IV PRN (18:23)
[2019-04-18] MEDS ORDERED: GLUCAGON 1 MG VIAL IM PRN (18:23)
[2019-04-18] MEDS ORDERED: MORPHINE 4 MG/1 ML VIAL IV PRN (18:23)
[2019-04-18] MEDS: SODIUM CHLORIDE 0.9% 1,000 ML IV SCH (21:18)
[2019-04-18] MEDS: cefTRIAXone 1,000 MG in SYRINGE 1 EACH IV SCH (21:19)
[2019-04-18] MEDS: MELATONIN 3 MG TABLET PO SCH (21:20)
[2019-04-18] MEDS: DONEPEZIL 10 MG TABLET PO SCH (21:20)
[2019-04-18] MEDS: traZODone 50 MG TABLET PO SCH (21:21)
[2019-04-18] MEDS: clonazePAM 0.5 MG TABLET PO SCH (21:21)
[2019-04-18] MEDS: INSULIN LISPRO 100 UNIT/ML SUBCUT SCH (21:24)
[2019-04-19] MEDS: LEVOTHYROXINE 75 MCG TABLET PO SCH (05:32)
[2019-04-19 06:01] LABS: Basophils % 0.3 % (0.0-0.8); Eosinophils % 0.3 % (0.00-10.9); Hematocrit 28.5 VOL% (35.7-47.0); Hemoglobin 8.9 GM/DL (12.0-16.0); Immature Granulocytes % 0.3 %; Immature Granulocytes Absolute 0.02 #; Lymphocytes # 1.7 10*3/uL (1.4-4.0); Lymphocytes % 26.6 % (21.3-54.2); Mean Corpuscular HGB Conc 31.2 GM/DL (32-36); Mean Corpuscular Volume 96.9 FL (87-102); Monocytes % 10.6 % (1.7-12.7); Neutrophils % 61.9 % (38.7-73.9); Platelet Count 228 T/CUMM (130-400); Red Blood Count 2.94 MC/CUMM (3.8-5.5); Red Cell Distribution Width 13.1 % (9.3-17.3); White Blood Count 6.2 T/CUMM (4-12)
[2019-04-19 06:21] LABS: Albumin 2.9 G/DL (3.4-5.0); Bilirubin,Total 0.7 MG/DL (0.2-1.0); Calcium 8.6 MG/DL (8.5-10.1); Total Protein 6.3 G/DL (6.4-8.3)
[2019-04-19] MEDS: INSULIN LISPRO 100 UNIT/ML SUBCUT SCH ×4 (08:39→21:03)
[2019-04-19] MEDS: LISINOPRIL 10 MG TABLET PO SCH (08:40)
[2019-04-19] MEDS: clonazePAM 0.5 MG TABLET PO SCH ×2 (08:42→21:03)
[2019-04-19] MEDS: PANTOPRAZOLE 40 MG TABLET PO SCH (08:42)
[2019-04-19] MEDS: traZODone 50 MG TABLET PO SCH (21:03)
[2019-04-19] MEDS: MELATONIN 3 MG TABLET PO SCH (21:03)
[2019-04-19] MEDS: cefTRIAXone 1,000 MG in SYRINGE 1 EACH IV SCH (21:03)
[2019-04-19] MEDS: DONEPEZIL 10 MG TABLET PO SCH (21:03)
[2019-04-20] MEDS: LEVOTHYROXINE 75 MCG TABLET PO SCH (06:04)
[2019-04-20 06:45] LABS: Basophils % 0.5 % (0.0-0.8); Eosinophils # 0.1 10*3/uL (0.0-0.87); Eosinophils % 3.2 % (0.00-10.9); Hemoglobin 8.6 GM/DL (12.0-16.0); Lymphocytes # 1.8 10*3/uL (1.4-4.0); Lymphocytes % 40.5 % (21.3-54.2); Mean Corpuscular HGB Conc 30.7 GM/DL (32-36); Mean Corpuscular Volume 98.2 FL (87-102); Mean Platelet Volume 9.4 FL (9.6-12.0); Monocytes % 13.8 % (1.7-12.7); Platelet Count 212 T/CUMM (130-400); Red Blood Count 2.85 MC/CUMM (3.8-5.5); Red Cell Distribution Width 13.2 % (9.3-17.3); White Blood Count 4.4 T/CUMM (4-12)
[2019-04-20] MEDS: INSULIN LISPRO 100 UNIT/ML SUBCUT SCH ×2 (07:22→13:36)
[2019-04-20 07:23] LABS: Albumin 2.7 G/DL (3.4-5.0); Bilirubin,Total 0.5 MG/DL (0.2-1.0); Calcium 8.5 MG/DL (8.5-10.1); Osmolality,Calculated 295.7 MOS/KG (273-304); Total Protein 5.9 G/DL (6.4-8.3)
[2019-04-20] MEDS: SODIUM CHLORIDE 0.9% 1,000 ML IV SCH (09:14)
[2019-04-20] MEDS: LISINOPRIL 10 MG TABLET PO SCH (09:15)
[2019-04-20] MEDS: clonazePAM 0.5 MG TABLET PO SCH (09:15)
[2019-04-20] MEDS: PANTOPRAZOLE 40 MG TABLET PO SCH (09:15)
[2019-04-20 11:09] VITALS: BP 101/53
== END 2019-04-20 14:10 | DRG 690 ==
LOC: EDUNIT# → N.ED 16:21 → N.EDINP 17:34 → N.3E 18:49
PROVIDERS: ADMIT Internal Medicine; ATTEND Internal Medicine

== ENCOUNTER 2020-11-20 21:54 | Inpatient (IN) ==
[2020-11-20 22:11] VITALS: BP 44/31
[2020-11-20] MEDS ORDERED: SODIUM CHLORIDE 0.9% 1,000 ML IV STA (22:11)
[2020-11-20 22:33] LABS: Albumin 2.9 G/DL (3.4-5.0); Bilirubin,Total 0.8 MG/DL (0.2-1.0); Calcium 9.1 MG/DL (8.5-10.1); Osmolality,Calculated 379.7 MOS/KG (273-304); Potassium 5.7 MMOL/L (3.5-5.1); Total Protein 6.8 G/DL (5.0-7.5)
[2020-11-20 22:37] LABS: Basophils % 0.2 % (0.0-0.8); Hematocrit 35.7 VOL% (35.7-47.0); Immature Granulocytes % 0.8 %; Lymphocytes # 0.5 10*3/uL (1.4-4.0); Mean Corpuscular Volume 110.2 FL (87-102); Mean Platelet Volume 11.3 FL (9.6-12.0); NRBC # 0.11 10*3/uL; Platelet Count 263 T/CUMM (130-400); Red Blood Count 3.24 MC/CUMM (3.8-5.5); Red Cell Distribution Width 15.2 % (9.3-17.3); White Blood Count 25.1 T/CUMM (4-12)
[2020-11-20 22:44] LABS: Band Neutrophils 4 % (0-10); Hypochromasia 1+; Macrocytosis Slight; Nucleated Red Blood Cells 1 (0-5); Platelet Estimate Normal; Segmented Neutrophils 95 % (50-85); Total Cells Counted 100
[2020-11-21] MEDS ORDERED: hydrALAZINE 20 MG/1 ML VIAL IV PRN (00:17)
[2020-11-21] MEDS ORDERED: MORPHINE 4 MG/1 ML VIAL IV PRN ×2 (00:17→08:34)
[2020-11-21] MEDS ORDERED: DEXTROSE 50% 25 GM/50 ML VIAL IV PRN (00:17)
[2020-11-21] MEDS ORDERED: GLUCAGON 1 MG VIAL IM PRN (00:17)
[2020-11-21] MEDS ORDERED: ONDANSETRON 4 MG/2 ML VIAL IV PRN (00:17)
[2020-11-21] MEDS ORDERED: SODIUM CHLORIDE 0.9% 1,000 ML IV SCH (00:30)
[2020-11-21] MEDS: ALBUTEROL/IPRATROPIUM 3 ML NEB RESP TX SCH ×2 (04:34→08:26)
[2020-11-21 05:19] LABS: Basophils % 0.2 % (0.0-0.8); Hematocrit 33.4 VOL% (35.7-47.0); Immature Granulocytes % 1.3 %; Immature Granulocytes Absolute 0.24 #; Lymphocytes # 0.7 10*3/uL (1.4-4.0); Lymphocytes % 3.7 % (21.3-54.2); Mean Corpuscular HGB Conc 27.2 GM/DL (32-36); Mean Corpuscular Volume 112.1 FL (87-102); Mean Platelet Volume 11.2 FL (9.6-12.0); NRBC # 0.16 10*3/uL; Neutrophils % 91.8 % (38.7-73.9); Platelet Count 205 T/CUMM (130-400); Red Blood Count 2.98 MC/CUMM (3.8-5.5); Red Cell Distribution Width 15.2 % (9.3-17.3)
[2020-11-21 05:20] LABS: Hemoglobin 9.1 GM/DL (12.0-16.0)
[2020-11-21 05:21] LABS: Band Neutrophils 6 % (0-10); Hypochromasia Slight; Lymphocytes 4 % (20-55); Microcytosis Slight; Nucleated Red Blood Cells 1 (0-5); Ovalocytes Slight; Platelet Estimate Adequate; Segmented Neutrophils 88 % (50-85); Total Cells Counted 100
[2020-11-21 05:24] LABS: Calcium 9.1 MG/DL (8.5-10.1); Osmolality,Calculated 379.7 MOS/KG (273-304)
[2020-11-21 05:38] LABS: Potassium 6.3 MMOL/L (3.5-5.1)
[2020-11-21] MEDS ORDERED: MORPHINE 10 MG/5 ML UDCUP PO PRN (08:41)
[2020-11-21] MEDS ORDERED: ALBUTEROL 2.5 MG/3 ML NEB RESP TX PRN (08:41)
[2020-11-21] MEDS ORDERED: LORazepam 2 MG/1 ML VIAL IV PRN (08:43)
[2020-11-21] MEDS ORDERED: ENOXAPARIN 30 MG/0.3 ML SYRINGE SUBCUT SCH (09:00)
== END 2020-11-21 09:24 | disposition expired | DRG 951 ==
LOC: EDUNIT# → EDBD → N.ED 21:54 → N.EDINP 21:54 → SUATTDRO 11-21 00:17 → N.TELES 11-21 01:05
PROVIDERS: ADMIT Internal Medicine; ATTEND Internal Medicine